=== PATIENT | male | born 1940 | race African-American/Black ===

== ENCOUNTER 2021-02-27 17:47 | Emergency (ER) | payer OTHER, SELFPAY ==
[2021-02-27 18:03] VITALS: BP 132/73; BP 141/93; PULSE 84; PULSE 85; RESP 16; TEMP 36.9; O2SAT 100; BMI 27.6
--- NOTE | 2021-02-27 18:28 | ED_ITS ---
HPI - Male Genitourinary General Chief complaint: Urogenital-Male Stated complaint: ? Time Seen by Provider: 02/27/21 18:15 Source: patient, family and EMS Mode of arrival: ambulatory Limitations: no limitations History of Present Illness HPI Narrative: 80 y/o male with unknown medical history presents to the ER from assisted living facility via EMS with reports of burning urination and blood in his urine that started this morning. When he woke up this morning he noticed his urine was darker than usual. It had a foul smelling odor. There was a couple drops of blood on the floor after he urinated this afternoon. He did not notice any blood clots. He is on any blood thinners. He denies any trauma. No fever or chills. No nausea, vomiting, abdominal pain. No history of UTIs. MD Complaint: dysuria and other (hematuria) Onset (ago): hour(s) Duration: intermittent Location: penis Severity: moderate Quality: burning Relieving factors: none Exacerbating factors: urination Associated symptoms: Reports blood in urine and dysuria Related Data Sexually active: No Previous Rx's Medication Instructions Recorded cefuroxime axetil 250 mg tablet 250 mg PO BID 7 Days #14 tab 02/27/21 Allergies Allergy/AdvReac Type Severity Reaction Status Date / Time Unable to Assess Allergy Unverified 02/27/21 18:16 Review of Systems Review of Systems: Constitutional: No Fever, No Chills ENT/Mouth: No sore throat, No Rhinorrhea, No Swallowing Difficulty Cardiovascular: No Chest Pain, No SOB, No Orthopnea, No Edema Respiratory: No Cough, No Sputum, No Wheezing, No dyspnea Gastrointestinal: No Nausea, No Vomiting, No Diarrhea, No abdominal Pain Genitourinary: + Dysuria, No Urinary Frequency, + Hematuria, +Foul smelling urine Musculoskeletal: No joint pain, No Myalgias Skin: No Skin Lesions, No rash Neuro: No Weakness, No Numbness, No Dizziness, No Headache Heme/Lymph: No Bruising, No Lymphadenopathy Endocrine: No Polyuria, No Polydipsia PMFSH Social History Social History Advance Directives: No Advance Directives Information Provided: No Physical Exam Vital Signs: Vital Signs: Last Vital Signs Temp 98.2 F 02/27/21 22:13 Pulse 78 02/27/21 22:19 Resp 16 02/27/21 22:13 BP 157/83 H 02/27/21 22:19 Pulse Ox 98 02/27/21 22:13 Body Mass Index 27.6 Appearance: Alert. Oriented X3. No acute distress. Eyes: Pupils equal, round and reactive to light. ENT: Pharynx normal. Neck: Normal inspection. Neck supple. CVS: Normal heart rate and rhythm. Pulses normal. Respiratory: No respiratory distress. Breath sounds normal. Abdomen: Soft and nontender. +BS x4 Genitalia: Normal external inspection, penis is uncircumcised. Foreskin is easily retractable. No blood at urethral meatus. Testicles are descended and nontender. No masses palpated. Skin: Skin warm and dry. Normal skin color. Normal skin turgor. No rashes. Extremities: No lower extremity edema. Neuro: Oriented X 3. Nonfocal. Course Course Course Narrative: 80 y/o male with history of polio as a child, unknown other medical history (reports only taking vitamins and is not on meds, came with no paperwork) who presents with dysuria, foul-smelling urine, and hematuria that started this morning. He is afebrile and nontoxic appearing. His urine here is clear yellow. He has no fever. Will send UA and basic lab workup. Doubt sepsis. Reevaluation(s) Reevaluation #1: No leukocytosis. His urine is showing microscopic hematuria. No gross hematuria. Will treat for acute cystitis with IV Rocephin now and start oral antibiotics for 1 week. Will refer to Urology. Patient is stable for discharge home with p.o. antibiotics and outpatient follow-up. Reevaluation #2: Prior to discharge patient noted to be hypertensive to 170 systolic. Repeat was in the 150 systolic he has no headache, chest pain, vision changes. He denies being on any medication for blood pressure. He does not recall last time he saw his primary care doctor. At this time he continues to be stable for discharge back to his assisted living. MDM - Male Genitourinary Lab Data Result diagrams: 02/27/21 18:44 02/27/21 18:44 Labs: Lab Results 02/27/21 02/27/21 02/27/21 Range/Units 18:29 18:44 18:44 WBC 6.3 (4.8-10.8) X10*3/uL RBC 4.47 L (4.60-5.80) X10*6/uL Hgb 12.4 L (14.0-18.0) g/dl Hct 38.6 L (42.0-52.0) % MCV 86.4 (80.0-98.0) fL MCH 27.7 (27.0-33.0) pg MCHC 32.1 (31.0-36.0) g/dl RDW 17.5 H (11.0-16.0) % Plt Count 184 (160-400) X10*3/uL MPV 10.5 (9.4-12.4) fL Immature Gran % (Auto) 0.2 (0.0-0.4) % Neut % (Auto) 43.9 L (45-73) % Lymph % (Auto) 32.3 (20-40) % Hawkins % (Auto) 15.7 H (2-11) % Eos % (Auto) 7.4 H (0-4) % Baso % (Auto) 0.5 (0-2) % Lymph # (Auto) 2.0 (1.2-4.9) X10*3/uL Hawkins # (Auto) 1.0 (0.1-1.2) X10*3/uL Eos # (Auto) 0.5 H (0.0-0.4) X10*3/uL Baso # (Auto) 0.0 (0.0-0.2) X10*3/uL Abs Immat Gran (auto) 0.01 (0.00-0.03) X10*3/uL Absolute Neuts (auto) 2.8 (2.0-8.3) x10*3/uL Absolute Nucleated RBC 0.000 (0.0-0.012) X10*3/uL Nucleated RBC % (auto) 0.0 (0.0-0.2) /100WBC APTT 39.0 H (24.1-38.0) SEC Sodium (135-145) mmol/L Potassium (3.3-5.1) mmol/L Chloride (96-108) mmol/L Carbon Dioxide (22-29) mmol/L Anion Gap (12-20) BUN (9-16) mg/dL Creatinine (0.5-1.4) mg/dL Estim Creat Clear Calc Estimated GFR Random Glucose (60-115) mg/dL Lactic Acid (0.5-2.0) mmol/L Calcium (8.4-10.2) mg/dL Magnesium (1.6-2.6) mg/dL Total Bilirubin (0.0-1.0) mg/dL Direct Bilirubin (0.0-0.5) mg/dL AST (5-37) U/L ALT (0-40) U/L Alkaline Phosphatase (39-117) U/L Total Protein (6.5-8.0) g/dL Albumin (3.5-5.0) g/dL Urine Color YELLOW Urine Appearance CLEAR Urine pH 6.0 (5.0-8.0) Ur Specific [place] >= 1.030 H (1.005-1.025) Urine Protein NEG (NEG-TRACE) MG/DL Urine Glucose (UA) NEG (NEG) MG/DL Urine Ketones NEG (NEG) MG/DL Urine Blood 1+ H (NEG) Urine Nitrite NEG (NEG) Ur Leukocyte Esterase NEG (NEG) Urine RBC 5-9 H (0) /HPF Urine WBC 0 (0-4) /HPF Ur Squamous Epith Cells 1+ /LPF Urine Bacteria 1+ /LPF 02/27/21 02/27/21 Range/Units 18:44 19:42 WBC (4.8-10.8) X10*3/uL RBC (4.60-5.80) X10*6/uL Hgb (14.0-18.0) g/dl Hct (42.0-52.0) % MCV (80.0-98.0) fL MCH (27.0-33.0) pg MCHC (31.0-36.0) g/dl RDW (11.0-16.0) % Plt Count (160-400) X10*3/uL MPV (9.4-12.4) fL Immature Gran % (Auto) (0.0-0.4) % Neut % (Auto) (45-73) % Lymph % (Auto) (20-40) % Hawkins % (Auto) (2-11) % Eos % (Auto) (0-4) % Baso % (Auto) (0-2) % Lymph # (Auto) (1.2-4.9) X10*3/uL Hawkins # (Auto) (0.1-1.2) X10*3/uL Eos # (Auto) (0.0-0.4) X10*3/uL Baso # (Auto) (0.0-0.2) X10*3/uL Abs Immat Gran (auto) (0.00-0.03) X10*3/uL Absolute Neuts (auto) (2.0-8.3) x10*3/uL Absolute Nucleated RBC (0.0-0.012) X10*3/uL Nucleated RBC % (auto) (0.0-0.2) /100WBC APTT (24.1-38.0) SEC Sodium 141 (135-145) mmol/L Potassium 4.3 (3.3-5.1) mmol/L Chloride 109 H (96-108) mmol/L Carbon Dioxide 25 (22-29) mmol/L Anion Gap 11 L (12-20) BUN 15 (9-16) mg/dL Creatinine 0.99 (0.5-1.4) mg/dL Estim Creat Clear Calc 47.8 Estimated GFR > 60 Random Glucose 111 (60-115) mg/dL Lactic Acid 0.8 (0.5-2.0) mmol/L Calcium 10.5 H (8.4-10.2) mg/dL Magnesium 2.1 (1.6-2.6) mg/dL Total Bilirubin 0.3 (0.0-1.0) mg/dL Direct Bilirubin < 0.2 (0.0-0.5) mg/dL AST 19 (5-37) U/L ALT 17 (0-40) U/L Alkaline Phosphatase 87 (39-117) U/L Total Protein 7.1 (6.5-8.0) g/dL Albumin 3.9 (3.5-5.0) g/dL Urine Color Urine Appearance Urine pH (5.0-8.0) Ur Specific [place] (1.005-1.025) Urine Protein (NEG-TRACE) MG/DL Urine Glucose (UA) (NEG) MG/DL Urine Ketones (NEG) MG/DL Urine Blood (NEG) Urine Nitrite (NEG) Ur Leukocyte Esterase (NEG) Urine RBC (0) /HPF Urine WBC (0-4) /HPF Ur Squamous Epith Cells /LPF Urine Bacteria /LPF Critical Care Time Critical Care Time Critical Care Time: No Discharge Plan Discharge Clinical Impression: Cystitis Patient Disposition: Xfer SNF Transfer Details: [facility] Instructions: Urinary Tract Infection in Men (ED), Interstitial Cystitis (ED) Additional Instructions: Your urine today showed traces of blood, which is most common with irritation of the bladder lining and infection. Your given 1 dose of IV antibiotics in the emergency room. Recommend taking the oral antibiotic as prescribed 2 times a day for 1 week. Drink plenty of water. Recommend following up with Urology for further evaluation. If you develop new or worsening symptoms call 911 or come back to the ER for further evaluation. Prescriptions: New cefuroxime axetil 250 mg tablet 250 mg PO BID 7 Days Qty: 14 RF: 0 Referrals: Ramu Kay MD [Physician] - 1 week (hematuria, dysuria) Interventions: ED Discharge Assessment Last Done: 02/27/21 22:09 Discharge Date/Time: 02/27/21 22:22
[2021-02-27 18:35] VITALS: BP 134/62; PULSE 84; RESP 16; TEMP 36.8; O2SAT 100
[2021-02-27 18:35] LABS: Appearance Urine CLEAR; Color Urine YELLOW; Glucose Urine UA NEG (NEG); Leukocyte Esterase Urine NEG (NEG); Nitrite Urine NEG (NEG); Specific Gravity - Urine >= 1.030 (1.005-1.025); UACC Culture Trigger NO; Urine Blood 1+ (NEG); Urine Ketones NEG (NEG); Urine Protein NEG (NEG-TRACE)
[2021-02-27 18:46] LABS: Bacteria Urine 1+ /LPF; Squamous Epithelial Cell Urine 1+ /LPF; WBC Urine 0 /HPF (0-4)
--- NOTE | 2021-02-27 18:47 | PC.NURSE ---
PATIENT WAS FILLING AND PACKING SUPERVISOR INTO HOSPITAL ATTIRE BY THIS PCT .
[2021-02-27 18:48] LABS: MANUAL DIFF FLAG NO
[2021-02-27 18:49] LABS: Basophils Percent Auto 0.5 % (0-2); Eosinophils Absolute Auto 0.5 X10*3/uL (0.0-0.4); Eosinophils Percent Auto 7.4 % (0-4); Hematocrit 38.6 % (42.0-52.0); Hemoglobin 12.4 g/dl (14.0-18.0); Imm Gran Abs Auto 0.01 X10*3/uL (0.00-0.03); Imm Gran Pct Auto 0.2 % (0.0-0.4); Lymphocytes Percent Auto 32.3 % (20-40); Mean Corpuscular HGB Conc 32.1 g/dl (31.0-36.0); Mean Corpuscular Hemoglobin 27.7 pg (27.0-33.0); Mean Corpuscular Volume 86.4 fL (80.0-98.0); Mean Platelet Volume 10.5 fL (9.4-12.4); Monocytes Percent Auto 15.7 % (2-11); Neutrophils Absolute Auto 2.8 x10*3/uL (2.0-8.3); Neutrophils Percent Auto 43.9 % (45-73); Platelet Count 184 X10*3/uL (160-400); Red Blood Count 4.47 X10*6/uL (4.60-5.80); Red Cell Distribution Width 17.5 % (11.0-16.0); White Blood Count 6.3 X10*3/uL (4.8-10.8)
[2021-02-27 19:12] LABS: Alanine Aminotransferase 17 U/L (0-40); Albumin Level 3.9 g/dL (3.5-5.0); Alkaline Phosphatase 87 U/L (39-117); Aspartate Amino Transferase 19 U/L (5-37); Bilirubin Direct < 0.2 mg/dL (0.0-0.5); Bilirubin Total 0.3 mg/dL (0.0-1.0); Blood Urea Nitrogen 15 mg/dL (9-16); Calcium 10.5 mg/dL (8.4-10.2); Creatinine Clr Calc Pharmacy 47.8; Estimated Glomerular Filt Rate > 60; Glucose Random 111 mg/dL (60-115); Magnesium 2.1 mg/dL (1.6-2.6); Total Protein 7.1 g/dL (6.5-8.0)
[2021-02-27 19:23] LABS: Anion Gap 11 (12-20); Carbon Dioxide 25 mmol/L (22-29); Chloride 109 mmol/L (96-108); Potassium 4.3 mmol/L (3.3-5.1); Sodium 141 mmol/L (135-145)
[2021-02-27] MEDS: 0.9 % Sodium Chloride 1,000 ML 999 ML IVCONT (19:46)
[2021-02-27] MEDS: cefTRIAXone sodium 1 GM in 0.9 % Sodium Chloride 50 ML IV (20:03)
[2021-02-27 20:09] LABS: Lactic Acid 0.8 mmol/L (0.5-2.0)
--- NOTE | 2021-02-27 21:06 | PC.NURSE ---
RN spoke with Kaylee ryder [facility] to make her aware of plan and to ensure there would be someone present to receive the patient which she confirmed. RN requested that staff call her upon the patient's discharge
[2021-02-27 22:13] VITALS: BP 172/105; PULSE 76; RESP 16; TEMP 36.8; O2SAT 98
[2021-02-27 22:19] VITALS: BP 157/83; PULSE 78
== END 2021-02-27 22:22 | disposition skilled nursing facility (03) ==
PROVIDERS: Physician Assistant; Emergency Provider Internal Medicine
DX: N30.91 Cystitis, unspecified with hematuria (principal); I10 Essential (primary) hypertension
CPT/HCPCS: 36415; 80048; 80076; 81001; 83605; 83735; 85025; 85730; 87040; 96361; 96374; 99284; J0696

== ENCOUNTER 2021-07-01 22:45 | Observation (INO) | payer OTHER, SELFPAY ==
--- NOTE | 2021-07-01 | ECG_ITS ---
Test Reason : CHEST PAIN Blood Pressure : / mmHG Vent. Rate : 104 BPM Atrial Rate : 104 BPM P-R Int : 168 ms QRS Dur : 124 ms QT Int : 376 ms P-R-T Axes : 057 -81 054 degrees QTc Int : 494 ms Sinus tachycardia Left axis deviation Right bundle branch block Premature ventricular complexes Abnormal ECG No previous ECGs available Referred By: Generic ED Physician Electronically Signed By:TEODORA BRENNER
[2021-07-01 22:53] VITALS: BP 170/80; PULSE 90; O2SAT 96; BMI 25.8
--- NOTE | 2021-07-01 23:10 | ED.CHESTPAIN ---
HPI - Chest Pain General Chief Complaint: Chest Pain Stated Complaint: cp Time Seen by Provider: 07/01/21 23:10 Source: patient Mode of arrival: EMS Limitations: no limitations History of Present Illness HPI narrative: Patient 80 years old with history of hypertension CKD diabetes hypercalcemia cerebral palsy with right-sided weakness comes here for chest pain started in the middle of the chest just prior to arrival felt his heart was beating fast . No syncope no shortness of breath no diaphoresis no radiation of pain no cough no fever or chills EKG done by EMS showed frequent PVCs Related Data Previous Rx's Medication Instructions Recorded cefuroxime axetil 250 mg tablet 250 mg PO BID 7 Days #14 tab 02/27/21 Allergies Allergy/AdvReac Type Severity Reaction Status Date / Time No Known Allergies Allergy Verified 07/02/21 03:41 Review of Systems Review of Systems: Yes all other systems are reviewed and are negative [facility] Past Medical History Medical History (Updated 07/02/21 @ 03:54 by Julio Rutherford MD) CKD stage 3 due to type 2 diabetes mellitus Diabetes mellitus Hypercalcemia Hypertension Osteoarthritis Social History Social History Alcohol intake: former Patient Tobacco Use Status: Former Tobacco user Use of substances other than those prescribed or required for medical reasons: No Advance Directives: No Physical Exam Vital Signs: Vital Signs: Last Vital Signs Pulse 86 07/02/21 05:47 Resp 16 07/02/21 05:47 BP 156/62 H 07/02/21 05:47 Pulse Ox 97 07/02/21 05:47 BMI result Body Mass Index 25.8 Appearance: Alert. Oriented X3. No acute distress. Eyes: PERRLA, No Nystagmus ENT: Pharynx normal. Oral Mucosa moist Neck: Normal inspection. Neck supple. CVS: Normal heart rate and rhythm. Pulses normal. Respiratory: No respiratory distress. Equal air entry bilateral, no wheezing/rales/rhonchi Abdomen: Soft and nontender. Bowel sounds are present, no mass palpable, no CVA tenderness Skin: Skin warm and dry. Normal skin color. Normal skin turgor. Extremities: No lower extremity edema. No calf tenderness Neuro: Oriented X 3. No motor deficit. No sensory deficit.No cerebellar signs , cranial nerves II-XII intact MDM - Chest Pain MDM Narrative Medical decision making narrative: Patient with chest pain new onset EKG showed unifocal PVCs without any acute ischemic changes initial troponin was elevated with no change in delta troponin chest pain is mid of the chest which increases on taking a deep breath. Will admit patient for rule out ACS patient already took aspirin earlier Lab Data Attestation: I reviewed the patient's lab results. Result diagrams: 07/02/21 04:31 07/02/21 04:31 Labs: Lab Results 07/01/21 07/01/21 07/01/21 Range/Units 23:41 23:41 23:41 WBC 8.0 (4.8-10.8) X10*3/uL RBC 4.96 (4.60-5.80) X10*6/uL Hgb 13.5 L (14.0-18.0) g/dl Hct 42.6 (42.0-52.0) % MCV 85.9 (80.0-98.0) fL MCH 27.2 (27.0-33.0) pg MCHC 31.7 (31.0-36.0) g/dl RDW 17.0 H (11.0-16.0) % Plt Count 195 (160-400) X10*3/uL MPV 9.8 (9.4-12.4) fL Immature Gran % (Auto) 0.3 (0.0-0.4) % Neut % (Auto) 81.2 H (45-73) % Lymph % (Auto) 9.3 L (20-40) % [place] % (Auto) 7.0 (2-11) % Eos % (Auto) 2.1 (0-4) % Baso % (Auto) 0.1 (0-2) % Lymph # (Auto) 0.7 L (1.2-4.9) X10*3/uL [place] # (Auto) 0.6 (0.1-1.2) X10*3/uL Eos # (Auto) 0.2 (0.0-0.4) X10*3/uL Baso # (Auto) 0.0 (0.0-0.2) X10*3/uL Abs Immat Gran (auto) 0.02 (0.00-0.03) X10*3/uL Absolute Neuts (auto) 6.5 (2.0-8.3) x10*3/uL Absolute Nucleated RBC 0.000 (0.0-0.012) X10*3/uL Nucleated RBC % (auto) 0.0 (0.0-0.2) /100WBC PT (9.9-13.0) SEC INR (0.9-1.1) APTT (24.1-38.0) SEC Sodium 142 (135-145) mmol/L Potassium 4.6 (3.3-5.1) mmol/L Chloride 109 H (96-108) mmol/L Carbon Dioxide 24 (22-29) mmol/L Anion Gap 14 (12-20) BUN 16 (9-16) mg/dL Creatinine 1.16 (0.5-1.4) mg/dL Estim Creat Clear Calc 49.9 Estimated GFR > 60 Random Glucose 129 H (60-115) mg/dL Calcium 10.7 H (8.4-10.2) mg/dL Total Bilirubin 0.5 (0.0-1.0) mg/dL AST 19 (5-37) U/L ALT 15 (0-40) U/L Alkaline Phosphatase 73 (39-117) U/L Total Creatine Kinase 206 H (38-174) U/L Troponin I High Sens 61.9 H (<3.5-35.0) ng/L Total Protein 7.6 (6.5-8.0) g/dL Albumin 4.0 (3.5-5.0) g/dL 07/01/21 07/02/21 Range/Units 23:41 02:23 WBC (4.8-10.8) X10*3/uL RBC (4.60-5.80) X10*6/uL Hgb (14.0-18.0) g/dl Hct (42.0-52.0) % MCV (80.0-98.0) fL MCH (27.0-33.0) pg MCHC (31.0-36.0) g/dl RDW (11.0-16.0) % Plt Count (160-400) X10*3/uL MPV (9.4-12.4) fL Immature Gran % (Auto) (0.0-0.4) % Neut % (Auto) (45-73) % Lymph % (Auto) (20-40) % [place] % (Auto) (2-11) % Eos % (Auto) (0-4) % Baso % (Auto) (0-2) % Lymph # (Auto) (1.2-4.9) X10*3/uL [place] # (Auto) (0.1-1.2) X10*3/uL Eos # (Auto) (0.0-0.4) X10*3/uL Baso # (Auto) (0.0-0.2) X10*3/uL Abs Immat Gran (auto) (0.00-0.03) X10*3/uL Absolute Neuts (auto) (2.0-8.3) x10*3/uL Absolute Nucleated RBC (0.0-0.012) X10*3/uL Nucleated RBC % (auto) (0.0-0.2) /100WBC PT 14.4 H (9.9-13.0) SEC INR 1.3 H (0.9-1.1) APTT 38.3 H (24.1-38.0) SEC Sodium (135-145) mmol/L Potassium (3.3-5.1) mmol/L Chloride (96-108) mmol/L Carbon Dioxide (22-29) mmol/L Anion Gap (12-20) BUN (9-16) mg/dL Creatinine (0.5-1.4) mg/dL Estim Creat Clear Calc Estimated GFR Random Glucose (60-115) mg/dL Calcium (8.4-10.2) mg/dL Total Bilirubin (0.0-1.0) mg/dL AST (5-37) U/L ALT (0-40) U/L Alkaline Phosphatase (39-117) U/L Total Creatine Kinase (38-174) U/L Troponin I High Sens 73.0 H (<3.5-35.0) ng/L Total Protein (6.5-8.0) g/dL Albumin (3.5-5.0) g/dL ECG Data ECG #1: Attestation: I personally reviewed and interpreted this ECG as follows: Interpretation: Sinus tachycardia with heart rate 104 beats per minute left axis deviation right bundle-branch block unifocal PVCs no acute ST T wave changes no acute ischemia Discharge Plan Discharge Clinical Impression: Chest pain Patient Disposition: Admitted As Inpatient
[2021-07-01 23:47] LABS: Basophils Percent Auto 0.1 % (0-2); Eosinophils Absolute Auto 0.2 X10*3/uL (0.0-0.4); Eosinophils Percent Auto 2.1 % (0-4); Hematocrit 42.6 % (42.0-52.0); Hemoglobin 13.5 g/dl (14.0-18.0); Imm Gran Abs Auto 0.02 X10*3/uL (0.00-0.03); Imm Gran Pct Auto 0.3 % (0.0-0.4); Lymphocytes Absolute Auto 0.7 X10*3/uL (1.2-4.9); Lymphocytes Percent Auto 9.3 % (20-40); MANUAL DIFF FLAG NO; Mean Corpuscular HGB Conc 31.7 g/dl (31.0-36.0); Mean Corpuscular Hemoglobin 27.2 pg (27.0-33.0); Mean Corpuscular Volume 85.9 fL (80.0-98.0); Mean Platelet Volume 9.8 fL (9.4-12.4); Monocytes Absolute Auto 0.6 X10*3/uL (0.1-1.2); Neutrophils Absolute Auto 6.5 x10*3/uL (2.0-8.3); Neutrophils Percent Auto 81.2 % (45-73); Platelet Count 195 X10*3/uL (160-400); Red Blood Count 4.96 X10*6/uL (4.60-5.80)
[2021-07-01 23:52] LABS: INTERNATIONAL NORM RATIO 1.3 (0.9-1.1); Prothrombin Time 14.4 SEC (9.9-13.0)
[2021-07-01] MEDS: Nitroglycerin 2 % Oint 1 GM Packet 0.5 INCH TRANSDERMA (23:52)
[2021-07-01 23:55] LABS: Partial Thromboplastin Time 38.3 SEC (24.1-38.0)
[2021-07-02 00:03] LABS: Alanine Aminotransferase 15 U/L (0-40); Alkaline Phosphatase 73 U/L (39-117); Anion Gap 14 (12-20); Aspartate Amino Transferase 19 U/L (5-37); Bilirubin Total 0.5 mg/dL (0.0-1.0); Blood Urea Nitrogen 16 mg/dL (9-16); Calcium 10.7 mg/dL (8.4-10.2); Carbon Dioxide 24 mmol/L (22-29); Chloride 109 mmol/L (96-108); Creatinine Clr Calc Pharmacy 49.9; Estimated Glomerular Filt Rate > 60; Glucose Random 129 mg/dL (60-115); Potassium 4.6 mmol/L (3.3-5.1); Sodium 142 mmol/L (135-145); Total Protein 7.6 g/dL (6.5-8.0)
[2021-07-02 00:07] LABS: Troponin-I High Sensitivity 61.9 ng/L (<3.5-35.0)
[2021-07-02 03:14] VITALS: PULSE 97; RESP 20
--- NOTE | 2021-07-02 03:17 | PC.NURSE ---
I assumed nursing care of Glenn upon his arrival to bed 17 via EMS. Glenn comes [place] local [place] and presents for evaluation of intermittent chest pain, 11/26 on arrival. He is alert, oriented x 3, makes eye contact with Rn and is calm and cooperative. Respiraitons non-labored, speech clear and appropriate, speaking in full sentences, no cyanosis. SR with R BBB on bedside monitor. Skin warm and dry. No nausea, no vomiting. We will continue to monitor Glenn.
--- NOTE | 2021-07-02 03:49 | P.HPHOSP_ITS ---
History of Present Illness Date of Service: 07/02/21 Chief Complaint: chest pain 80-year-old male with a past medical history of hypertension, hyperlipidemia, diabetes, CKD stage 3, hearing loss, history of hypercalcemia, osteoarthritis, osteoporosis, urinary incontinence, tubular adenoma presented to the hospital with a chief complaint of chest pain. Patient reports that he had chest pain located in the left side of the chest, sharp in nature, nonradiating, no associated lightheadedness dizziness, diaphore sis or nausea vomiting. Patient mentioned that his chest pain improved at the time of my entry. Denies any fever chills cough. Denies any GI symptoms. Review of all other systems is negative except mentioned above ER course: Per ER team patient's troponin elevated to 61.9-73.0. EKG was nonischemic. Chest pain resolved. Admitted to the hospital for further management [facility] Medical History (Updated 07/02/21 @ 03:54 by Julio Rutherford MD) CKD stage 3 due to type 2 diabetes mellitus Diabetes mellitus Hypercalcemia Hypertension Osteoarthritis Pertinent family history: Reviewed Social History Alcohol intake: former Patient Tobacco Use Status: Former Tobacco user Use of substances other than those prescribed or required for medical reasons: No Advance Directives: No Meds Allergies Allergy/AdvReac Type Severity Reaction Status Date / Time No Known Allergies Allergy Verified 07/02/21 03:41 Active Medications: Current Medications Acetaminophen (Acetaminophen 325 Mg Tablet) 650 mg PO Q6H PRN PRN Reason: Pain, Mild (Pain Scale 1-3) Enoxaparin Sodium (Enoxaparin Sodium 40 Mg/0.4 Ml Syringe) 40 mg SUBCUT Q24H HARJIT Melatonin (Melatonin 3 Mg Tablet) 6 mg PO BEDTIME PRN PRN Reason: Insomnia Nitroglycerin (Nitroglycerin 0.4 Mg Tab.Subl) 0.4 mg SUBLINGUAL Q5M PRN PRN Reason: Chest Pain Senna (Sennosides 8.6 Mg Tablet) 17.2 mg PO BEDTIME PRN PRN Reason: Constipation Sodium Chloride (0.9 % Sodium Chloride Flush 3 Ml Syringe) 3 ml IVFLUSH QSHIFT [facility] Medications (per PCP office note) Alcohol Pads, See Instructions, 3 refills, use as directed for Type 2 Diabetes Mellitus, E11.9, 1x/daily. 90 day supply. aspirin 81 mg oral tablet, chewable, 81 mg= 1 tablet, By Mouth, Daily, 11 refi lls Bed Pads, See Instructions, 11 refills, dx: urinary incontinence, cerebral palsy. bedrails. left and right, See Instructions, diagnosis gait instability/falls pt wheelchair/room confined bedside commode, See Instructions, diagnosis gait instability pt wheelchair/room confined cetirizine 10 mg oral tablet, 1 tablet, By Mouth, Daily, 11 refills Detrol LA 2 mg oral capsule, extended release, 2 mg= 1 capsule, By Mouth, Daily, 11 refills docusate sodium 100 mg oral tablet, 100 mg= 1 tablet, By Mouth, 2 times a day, 11 refills, with plenty of water Freestyle Lite Lancets, See Instructions, 11 refills, dx: to check BS once daily fasting Freestyle Lite Monitor, See Instructions, dx: DM II, diet controlled, E11.9, testing once daily. 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 May partially fill tub transfer bench, See Instructions, diagnosis gait instability/falls pt wheelchair/room confined Vitamin D3 1000 intl units oral capsule, 1000 International_Units= 1 capsule, By Mouth, Daily, 11 refills, with food Walker with seat attached, See Instructions, Use when ambulating Physical Exam Vital Signs and Narrative: Vital Signs: Last Vital Signs Pulse 97 07/02/21 03:14 Resp 20 07/02/21 03:14 BMI result Body Mass Index 25.8 Gen: Appears be in no acute distress HEENT: NCAT, Moist mucosa. Pulmonary: Vesicular breath sounds, fair air entry CVS: Normal S1-S2 Abdomen: BS+, Soft, Nontender Extremities: Warm well perfused Neuro: Alert and awake. Results Labs CBC and Chem 7: 07/01/21 23:41 07/01/21 23:41 Labs: Laboratory Results - last 24 hr 07/01/21 07/01/21 07/01/21 23:41 23:41 23:41 MCV 85.9 MCH 27.2 MCHC 31.7 RDW 17.0 H Plt Count 195 MPV 9.8 Immature Gran % (Auto) 0.3 Neut % (Auto) 81.2 H Lymph % (Auto) 9.3 L [place] % (Auto) 7.0 Eos % (Auto) 2.1 Baso % (Auto) 0.1 Lymph # (Auto) 0.7 L [place] # (Auto) 0.6 Eos # (Auto) 0.2 Baso # (Auto) 0.0 Abs Immat Gran (auto) 0.02 Absolute Neuts (auto) 6.5 Absolute Nucleated RBC 0.000 Nucleated RBC % (auto) 0.0 PT 14.4 H INR 1.3 H APTT 38.3 H Anion Gap 14 Estim Creat Clear Calc 49.9 Estimated GFR > 60 Random Glucose 129 H Calcium 10.7 H Total Bilirubin 0.5 AST 19 ALT 15 Alkaline Phosphatase 73 Total Creatine Kinase 206 H Total Protein 7.6 Albumin 4.0 Imaging Radiologist's Impressions: Reason For Exam Swelling Extremities RESULT: US Doppler Ext Lower Venous Bilat US Doppler Ext Lower Venous Bilat INDICATION: Lower extremity swelling. COMPARISON: None IMAGING TECHNIQUE: Ultrasound of the veins from the groin through the calf was performed using grayscale, color, and spectral Doppler ultrasound assessing for complete compressibility and normal flow characteristics. FINDINGS: RIGHT LOWER EXTREMITY: Common femoral vein: Patent. No thrombosis. Femoral vein: Patent. No thrombosis. Popliteal vein: Patent. No thrombosis. Gastrocnemius veins: The visualized portions are patent without evidence of thrombosis. Peroneal veins: The visualized portions are patent without evidence of throm bosis. Posterior tibial veins: The visualized portions are patent without evidence of thrombosis. LEFT LOWER EXTREMITY: Common femoral vein: Patent. No thrombosis. Femoral vein: Patent. No thrombosis. Popliteal vein: Patent. No thrombosis. Gastrocnemius veins: The visualized portions are patent without evidence of thrombosis. Peroneal veins: The visualized portions are patent without evidence of thrombosis. Posterior tibial veins: The visualized portions are patent without evidence of thrombosis. OTHER FINDINGS: There is diffuse calf edema. IMPRESSION: No evidence of deep venous thrombosis. I have personally reviewed the images and I agree with this report. WSN: [id number] Ordering Physician: Keri Baldwin Signature Line Dictated By: David[Radiology] Jonn ALARCON Dictated Date/Time: 06/27/21 11:22 a Reviewed By: Chet Dick MD Signed By: Chet Dick MD Signed Date/Time: 06/27/21 11:27 am Transcribed By: GWENDOLYN Transcribed Date/Time: 06/27/21 11:01 am US Doppler Ext Lower Venous Bilat This document has an image Assessment and Plan (1) Chest pain: Status: Acute Plan 80-year-old male with a past medical history of hypertension, hyperlipidemia, diabetes, CKD stage 3, hearing loss, history of hypercalcemia, osteoarthritis, osteoporosis, urinary incontinence, tubular adenoma presented to the hospital with a chief complaint of chest pain. chest pain: Currently resolved Troponins indeterminate and plateaued. sublingual nitroglycerin p.r.n. Telemetry Cardiology consult Echocardiogram continue home aspirin, statin history of peripheral edema: Patient on Lasix at home. Will continue. Patient had recent venous duplex negative. History of diabetes: Insulin sliding scale. DVT prophylaxis: Lovenox Code status: Full code Quality Stroke Does the patient have a stroke diagnosis?: No VTE Prior VTE?: No VTE Risk Level:: Medical - moderate - high VTE Device Contraindication: Treatment Not Indicated VTE Drug Contraindication: N/A - Med Ordered
[2021-07-02 04:56] LABS: MANUAL DIFF FLAG NO
[2021-07-02 04:58] LABS: Basophils Percent Auto 0.2 % (0-2); Eosinophils Absolute Auto 0.2 X10*3/uL (0.0-0.4); Eosinophils Percent Auto 2.6 % (0-4); Hematocrit 40.1 % (42.0-52.0); Hemoglobin 12.7 g/dl (14.0-18.0); Imm Gran Abs Auto 0.02 X10*3/uL (0.00-0.03); Imm Gran Pct Auto 0.3 % (0.0-0.4); Lymphocytes Absolute Auto 0.9 X10*3/uL (1.2-4.9); Lymphocytes Percent Auto 14.1 % (20-40); Mean Corpuscular HGB Conc 31.7 g/dl (31.0-36.0); Mean Corpuscular Hemoglobin 27.4 pg (27.0-33.0); Mean Corpuscular Volume 86.4 fL (80.0-98.0); Mean Platelet Volume 11.3 fL (9.4-12.4); Monocytes Absolute Auto 0.6 X10*3/uL (0.1-1.2); Monocytes Percent Auto 8.3 % (2-11); Neutrophils Absolute Auto 4.9 x10*3/uL (2.0-8.3); Neutrophils Percent Auto 74.5 % (45-73); Platelet Count 212 X10*3/uL (160-400); Red Blood Count 4.64 X10*6/uL (4.60-5.80); Red Cell Distribution Width 16.9 % (11.0-16.0); White Blood Count 6.6 X10*3/uL (4.8-10.8)
[2021-07-02 05:16] LABS: Anion Gap 13 (12-20); Blood Urea Nitrogen 17 mg/dL (9-16); Calcium 10.3 mg/dL (8.4-10.2); Carbon Dioxide 23 mmol/L (22-29); Chloride 111 mmol/L (96-108); Creatinine Clr Calc Pharmacy 53.6; Estimated Glomerular Filt Rate > 60; Glucose Random 121 mg/dL (60-115); Potassium 4.5 mmol/L (3.3-5.1); Sodium 142 mmol/L (135-145)
[2021-07-02 05:47] VITALS: BP 156/62; PULSE 86; RESP 16; O2SAT 97
--- NOTE | 2021-07-02 06:38 | PC.NURSE ---
Assumed care of pt Pt able to stand and pivot from stretcher to hospital bed Pt states current chest pain is 0. NAD Will continue to monitor
[2021-07-02 06:39] VITALS: BP 122/62; PULSE 96; RESP 18; TEMP 36.8; O2SAT 96
--- NOTE | 2021-07-02 06:39 | PC.NURSE ---
To ED Overflow via stretcher with phototypesetting equipment monitor. nursing report given to ivet DURAN
--- NOTE | 2021-07-02 09:14 | PHA.MEDREC ---
Pharmacy Consult ? Medication Reconciliation Pharmacy has completed the medication reconciliation. I contact the SNF patient was at, [facility], for medication list. List matched patient's claim history. Francie Agarwal, YasmineD
[2021-07-02 09:32] VITALS: BP 110/63; PULSE 90; RESP 20; O2SAT 97
[2021-07-02 09:33] LABS: COVID-19 Test Negative (Negative)
[2021-07-02] MEDS: Aspirin 81 MG TAB.CHEW PO (09:34)
[2021-07-02] MEDS: Enoxaparin Sodium 40 MG/0.4 ML SYRINGE SUBCUT (09:34)
[2021-07-02] MEDS: 0.9 % Sodium Chloride Flush 3 ML SYRINGE IVFLUSH (09:35)
--- NOTE | 2021-07-02 09:38 | PC.NURSE ---
pt alert and oriented, skin appropriate for ethnicity, respirations even and unlabored, ls clear, pt denies chest pain at this time but still reports slight sob, vs stable
--- NOTE | 2021-07-02 10:19 | MHC.CM.PN ---
met with pt who ius from [facility] pt has been vaccinated and will need trans[portaion when dcd back to [facility] dc plan return to [facility]
--- NOTE | 2021-07-02 11:31 | MHC.CM.PN ---
pt will be dcd to [facility]
--- NOTE | 2021-07-02 11:36 | P.DS_ITS ---
DS: Providers Provider Date of Service: 07/02/21 Date of admission: 07/02/21 03:37 Primary care physician: Keri Baldwin Consults: 07/02/21 03:37 Consult to Cardiology Routine Consulting Provider: Bryan Leblanc Reason for consultation: chest pain DS: Diagnosis Discharge Diagnosis (1) Chest pain: Status: Acute DS: Summary Hospital Course Hospital Course: Chief Complaint:? chest pain ? 80-year-old male with a past medical history of hypertension, hyperlipidemia, diabetes, CKD stage 3, hearing loss, history of hypercalcemia, osteoarthritis, osteoporosis, urinary incontinence, tubular adenoma presented to the hospital with a chief complaint of chest pain. Patient reports that he had chest pain located in the left side of the chest, sharp in nature, nonradiating, no associated lightheadedness dizziness, diaphoresis or nausea vomiting.? Patient mentioned that his chest pain improved at the time of my entry.? Denies any fever chills cough.? Denies any GI symptoms.? Review of all other systems is negative except mentioned above ER course: Per ER team patient's troponin elevated to? 61.9-73.0.? EKG was nonischemic.? Chest pain resolved.? Admitted to the hospital for further management Hospital course: Patient presented with chest pressure and elevated highly sensitive troponin I level to 73 with presentation consistent with NSTEMI, ECG is non-diagnositic. He is been medically managed with asprin, high intensity statin, metoprolol and IV heparin. Cardiology (Dr. Leblanc) advises further testing with carediac catherization and therefore will be transfered to [facility] for this. Presently he is hemodynamically stable. Time Spent with Patient Time attestation: Total time spent providing and/or coordinating discharge services: Discharge coordination time: Greater than 30 minutes Quality: Stroke Does the patient have a stroke diagnosis?: No Physical Exam Vital Signs: Vital Signs: Last Vital Signs Temp 98.2 F 07/02/21 06:39 Pulse 90 07/02/21 09:32 Resp 20 07/02/21 09:32 BP 110/63 07/02/21 09:32 Pulse Ox 97 07/02/21 09:32 BMI result Body Mass Index 25.8 Const: Other: General: AO X 3, no acute distress Resp: CTA bilateral CVS: S1,S2,RRR GI: +BS, NT, no distention Skin: No rash Neuro: motor grossly intact Psych: appropriate affect DS: Data Data Completed and Pending Labs on day of discharge: Laboratory Results - last 24 hr 07/01/21 07/01/21 07/01/21 23:41 23:41 23:41 WBC 8.0 RBC 4.96 Hgb 13.5 L Hct 42.6 MCV 85.9 MCH 27.2 MCHC 31.7 RDW 17.0 H Plt Count 195 MPV 9.8 Immature Gran % (Auto) 0.3 Neut % (Auto) 81.2 H Lymph % (Auto) 9.3 L [place] % (Auto) 7.0 Eos % (Auto) 2.1 Baso % (Auto) 0.1 Lymph # (Auto) 0.7 L [place] # (Auto) 0.6 Eos # (Auto) 0.2 Baso # (Auto) 0.0 Abs Immat Gran (auto) 0.02 Absolute Neuts (auto) 6.5 Absolute Nucleated RBC 0.000 Nucleated RBC % (auto) 0.0 PT INR APTT Sodium 142 Potassium 4.6 Chloride 109 H Carbon Dioxide 24 Anion Gap 14 BUN 16 Creatinine 1.16 Estim Creat Clear Calc 49.9 Estimated GFR > 60 Random Glucose 129 H Calcium 10.7 H Total Bilirubin 0.5 AST 19 ALT 15 Alkaline Phosphatase 73 Total Creatine Kinase 206 H Troponin I High Sens 61.9 H Total Protein 7.6 Albumin 4.0 COVID-19 ([facility]) COVID-19 Clin Com 07/01/21 07/02/21 07/02/21 23:41 02:23 04:31 WBC 6.6 RBC 4.64 Hgb 12.7 L Hct 40.1 L MCV 86.4 MCH 27.4 MCHC 31.7 RDW 16.9 H Plt Count 212 MPV 11.3 Immature Gran % (Auto) 0.3 Neut % (Auto) 74.5 H Lymph % (Auto) 14.1 L [place] % (Auto) 8.3 Eos % (Auto) 2.6 Baso % (Auto) 0.2 Lymph # (Auto) 0.9 L [place] # (Auto) 0.6 Eos # (Auto) 0.2 Baso # (Auto) 0.0 Abs Immat Gran (auto) 0.02 Absolute Neuts (auto) 4.9 Absolute Nucleated RBC 0.000 Nucleated RBC % (auto) 0.0 PT 14.4 H INR 1.3 H APTT 38.3 H Sodium Potassium Chloride Carbon Dioxide Anion Gap BUN Creatinine Estim Creat Clear Calc Estimated GFR Random Glucose Calcium Total Bilirubin AST ALT Alkaline Phosphatase Total Creatine Kinase Troponin I High Sens 73.0 H Total Protein Albumin COVID-19 ([facility]) COVID-19 Clin Com 07/02/21 07/02/21 04:31 09:09 WBC RBC Hgb Hct MCV MCH MCHC RDW Plt Count MPV Immature Gran % (Auto) Neut % (Auto) Lymph % (Auto) [place] % (Auto) Eos % (Auto) Baso % (Auto) Lymph # (Auto) [place] # (Auto) Eos # (Auto) Baso # (Auto) Abs Immat Gran (auto) Absolute Neuts (auto) Absolute Nucleated RBC Nucleated RBC % (auto) PT INR APTT Sodium 142 Potassium 4.5 Chloride 111 H Carbon Dioxide 23 Anion Gap 13 BUN 17 H Creatinine 1.08 Estim Creat Clear Calc 53.6 Estimated GFR > 60 Random Glucose 121 H Calcium 10.3 H Total Bilirubin AST ALT Alkaline Phosphatase Total Creatine Kinase Troponin I High Sens Total Protein Albumin COVID-19 ([facility]) Negative COVID-19 Clin Com See Note Discharge Plan Discharge Anticipated Discharge Date/Time: 07/02/21 11:21 Patient Disposition: Xfer Acute Care Hospital Referrals: [facility] [Outside] - 1 Week Keri Baldwin [Primary Care Provider] - 1 Week Discharge Medications: New aspirin 81 mg Tablet,Chewable 81 mg PO DAILY Qty: 30 0RF nitroglycerin [Nitrostat] 0.4 mg Tablet, Sublingual 0.4 mg sublingual Q5MX3 PRN (Reason: Chest Pain) Qty: 30 0RF metoprolol tartrate 25 mg tablet 12.5 mg PO BID Qty: 30 0RF Continued tolterodine 2 mg capsule,extended release 24hr 1 cap PO DAILY 0RF cetirizine 10 mg tablet 1 tab PO DAILY 0RF tramadol 50 mg tablet 1 tab PO Q12H PRN (Reason: Pain) 0RF simvastatin 40 mg tablet 1 tab PO BEDTIME 0RF docusate sodium 100 mg capsule 1 cap PO BID 0RF aspirin 81 mg tablet,chewable 1 tab PO DAILY 0RF cholecalciferol (vitamin D3) [Vitamin D3] 25 mcg (1,000 unit) capsule 1 cap PO DAILY 0RF Discharge Orders: Discharge Order (Routine); Ordered 07/02/21 Ordered By: Gelacio Durbin Diet: advance to usual diet Activity on Discharge: As tolerated Stand Alone Forms: Patient Portal Discharge page Care Plan Goals: Transfer to [facility] for cardiac cath Health Concerns: NSTEMI Plan of Treatment: Take aspirin, metoprolol, Lipitor Assessment: As above Discharge Date/Time: 07/02/21 16:10
--- NOTE | 2021-07-02 11:43 | P.CONCA_ITS ---
History of Present Illness History of Present Illness Date of Service: 07/02/21 Chief complaint: Chest pain Narrative: This is a cardiology consultation regarding chest pain and elevated troponins. Patient has multiple medical comorbidities including hypertension, dyslipidemia, diabetes, CKD stage 3, hearing issues. Current admission is for complaints of chest pain. He is not able to really describe much but states he had a discomfort in the substernal area in the left chest over the last couple of days. Seems to have been somewhat intermittent but again difficult to really clarify from patient. Today he states that he feels okay. After arrival, troponins have been found to be elevated and hence he has been admitted. No known CAD otherwise in the past. Review of Systems Review of Systems: Yes all other systems are reviewed and are negative Cardiovascular: Cardiovascular: Reports as per HPI, Reports no additional cardiovascular complaints, Denies acrocyanosis, Denies cool extremities, Reports chest pain, Denies diaphoresis, Denies syncope, Denies claudication, Denies leg edema, Denies lightheadedness, Denies palpitations and Denies dyspnea Respiratory: Respiratory: Denies dyspnea Neurologic: Denies syncope Endocrine: Endocrine: Denies palpitations [facility] Past Medical History Medical History (Updated 07/02/21 @ 11:45 by Bryan Leblanc MD) CKD stage 3 due to type 2 diabetes mellitus Diabetes mellitus Hypercalcemia Hypertension Osteoarthritis Social History Social History Alcohol intake: former Patient Tobacco Use Status: Former Tobacco user Use of substances other than those prescribed or required for medical reasons: No Advance Directives: No service: No Meds Allergies Allergy/AdvReac Type Severity Reaction Status Date / Time No Known Allergies Allergy Verified 07/02/21 03:41 Active Medications: Current Medications Acetaminophen (Acetaminophen 325 Mg Tablet) 650 mg PO Q6H PRN PRN Reason: Pain, Mild (Pain Scale 1-3) Aspirin (Aspirin 81 Mg Tab.Chew) 81 mg PO DAILY [facility] Last Admin: 07/02/21 09:34 Dose: 81 mg Documented by: Atorvastatin Calcium (Atorvastatin Calcium 10 Mg Tablet) 10 mg PO BEDTIME [facility] Heparin Sodium (Porcine) (Heparin Sodium,Porcine 5,000 Unit/Ml Vial) 3,200 unit 40 unit/kg (3200 unit) IVPUSH PROTOCOL BOLUS PRN; Protocol PRN Reason: 40 unit/kg - Heparin Protocol Heparin Sodium (Porcine) (Heparin Sodium,Porcine 5,000 Unit/Ml Vial) 6,400 unit 80 unit/kg (6400 unit) IVPUSH PROTOCOL BOLUS PRN; Protocol PRN Reason: 80 unit/kg - Heparin Protocol Heparin Sodium/Sodium Chloride () 25,000 unit in 250 mls @ 0 mls/hr IVCONT .Q0M HARJIT; Protocol Melatonin (Melatonin 3 Mg Tablet) 6 mg PO BEDTIME PRN PRN Reason: Insomnia Metoprolol Tartrate (Metoprolol Tartrate 12.5 Mg Halftab) 12.5 mg PO BID [facility]; Protocol Nitroglycerin (Nitroglycerin 0.4 Mg Tab.Subl) 0.4 mg SUBLINGUAL Q5MX3 PRN PRN Reason: Chest Pain Senna (Sennosides 8.6 Mg Tablet) 17.2 mg PO BEDTIME PRN PRN Reason: Constipation Sodium Chloride (0.9 % Sodium Chloride Flush 3 Ml Syringe) [facility] Last Admin: 07/02/21 09:35 Dose: 3 ml Documented by: Home Medications Medication Instructions Recorded Confirmed Last Taken Type aspirin 81 mg chewable tablet 1 tab PO DAILY 07/02/21 07/02/21 Unknown History cetirizine 10 mg tablet 1 tab PO DAILY 07/02/21 07/02/21 Unknown History cholecalciferol (vitamin D3) 25 1 cap PO DAILY 07/02/21 07/02/21 Unknown History mcg (1,000 unit) capsule (Vitamin D3) docusate sodium 100 mg capsule 1 cap PO BID 07/02/21 07/02/21 Unknown History simvastatin 40 mg tablet 1 tab PO BEDTIME 07/02/21 07/02/21 Unknown History tolterodine 2 mg capsule,extended 1 cap PO DAILY 07/02/21 07/02/21 Unknown History release 24 hr tramadol 50 mg tablet 1 tab PO Q12H PRN 07/02/21 07/02/21 Unknown History Physical Exam Vital Signs: Vital Signs: Last Vital Signs Temp 98.2 F 07/02/21 06:39 Pulse 90 07/02/21 09:32 Resp 20 07/02/21 09:32 BP 110/63 07/02/21 09:32 Pulse Ox 97 07/02/21 09:32 BMI result Body Mass Index 25.8 Const: General: comfortable HENMT: Other: Unremarkable Neck: Neck: Yes normal visual inspection Chest: Chest palpation & inspection: normal inspection of the chest Resp: Auscultation: clear to auscultation bilaterally Cardio: Palpation: normal PMI Heart sounds: S1 normal heart sound present, S2 normal heart sound present, no gallops, no murmurs and no rubs GI: Palpation (GI): Soft to palpation Back/Spine/Pelvis: Other: unremarkable Skin: Lesions: other Neuro: General: other Extrem: General: Yes other Psych: Mental Status: other Objective Labs and Meds Result diagrams: 07/02/21 04:31 07/02/21 04:31 Lab results: Laboratory Results - last 24 hr 07/01/21 07/01/21 07/01/21 23:41 23:41 23:41 WBC 8.0 RBC 4.96 Hgb 13.5 L Hct 42.6 MCV 85.9 MCH 27.2 MCHC 31.7 RDW 17.0 H Plt Count 195 MPV 9.8 Immature Gran % (Auto) 0.3 Neut % (Auto) 81.2 H Lymph % (Auto) 9.3 L [place] % (Auto) 7.0 Eos % (Auto) 2.1 Baso % (Auto) 0.1 Lymph # (Auto) 0.7 L [place] # (Auto) 0.6 Eos # (Auto) 0.2 Baso # (Auto) 0.0 Abs Immat Gran (auto) 0.02 Absolute Neuts (auto) 6.5 Absolute Nucleated RBC 0.000 Nucleated RBC % (auto) 0.0 PT INR APTT Sodium 142 Potassium 4.6 Chloride 109 H Carbon Dioxide 24 Anion Gap 14 BUN 16 Creatinine 1.16 Estim Creat Clear Calc 49.9 Estimated GFR > 60 Random Glucose 129 H Calcium 10.7 H Total Bilirubin 0.5 AST 19 ALT 15 Alkaline Phosphatase 73 Total Creatine Kinase 206 H Troponin I High Sens 61.9 H Total Protein 7.6 Albumin 4.0 COVID-19 ([facility]) COVID-19 Clin Com 07/01/21 07/02/21 07/02/21 23:41 02:23 04:31 WBC 6.6 RBC 4.64 Hgb 12.7 L Hct 40.1 L MCV 86.4 MCH 27.4 MCHC 31.7 RDW 16.9 H Plt Count 212 MPV 11.3 Immature Gran % (Auto) 0.3 Neut % (Auto) 74.5 H Lymph % (Auto) 14.1 L [place] % (Auto) 8.3 Eos % (Auto) 2.6 Baso % (Auto) 0.2 Lymph # (Auto) 0.9 L [place] # (Auto) 0.6 Eos # (Auto) 0.2 Baso # (Auto) 0.0 Abs Immat Gran (auto) 0.02 Absolute Neuts (auto) 4.9 Absolute Nucleated RBC 0.000 Nucleated RBC % (auto) 0.0 PT 14.4 H INR 1.3 H APTT 38.3 H Sodium Potassium Chloride Carbon Dioxide Anion Gap BUN Creatinine Estim Creat Clear Calc Estimated GFR Random Glucose Calcium Total Bilirubin AST ALT Alkaline Phosphatase Total Creatine Kinase Troponin I High Sens 73.0 H Total Protein Albumin COVID-19 ([facility]) COVID-19 [employer] Com 07/02/21 07/02/21 04:31 09:09 WBC RBC Hgb Hct MCV MCH MCHC RDW Plt Count MPV Immature Gran % (Auto) Neut % (Auto) Lymph % (Auto) [place] % (Auto) Eos % (Auto) Baso % (Auto) Lymph # (Auto) [place] # (Auto) Eos # (Auto) Baso # (Auto) Abs Immat Gran (auto) Absolute Neuts (auto) Absolute Nucleated RBC Nucleated RBC % (auto) PT INR APTT Sodium 142 Potassium 4.5 Chloride 111 H Carbon Dioxide 23 Anion Gap 13 BUN 17 H Creatinine 1.08 Estim Creat Clear Calc 53.6 Estimated GFR > 60 Random Glucose 121 H Calcium 10.3 H Total Bilirubin AST ALT Alkaline Phosphatase Total Creatine Kinase Troponin I High Sens Total Protein Albumin COVID-19 ([facility]) Negative COVID-19 Clin Com See Note ECG Interpretation: EKG with sinus tachycardia, 104/Min; right bundle-branch block pattern, PVCs. Assessment and Plan (1) NSTEMI (non-ST elevated myocardial infarction): Status: Acute (2) PVC (premature ventricular contraction): Status: Acute Plan Echocardiogram with low-normal LVEF; basal inferior akinesis. No prior studies for comparison. High sensitivity troponins are elevated at 62 and 73. Currently, chest pain-free. We will treat him as NSTEMI with IV heparin drip. Aspirin and high-dose statins. Beta-blockers. Will transfer to [facility] for diagnostic cardiac catheterization. Patient is agreeable. Procedures Date of Service Date of Service: 07/02/21
[2021-07-02] MEDS: Metoprolol Tartrate 12.5 MG HALFTAB PO (12:13)
--- NOTE | 2021-07-02 12:15 | CA_ITS ---
Transthoracic Echocardiogram Patient (Last, First, Middle): Glenn Luna, Gender: Male Date of : 1940 Age: 80 Procedure Date: 07/02/2021 Procedure Type: Transthoracic Echocardiogram Location: ER Height: 175.26 cm Weight: 79.38 kg BSA: 1.95 m2 Heart Rate: bpm BP: 116 / 56 mmHg City Controller: YR/TO Referring MD: Julio Rutherford MD Symptoms: high troponins; chest pain Study Quality: Fair ECG Rhythm: Sinus with PVCs Conclusions: - The left ventricular systolic function is low normal. The calculated ejection fraction is 54% by biplane method. - The basal inferior segment is akinetic. - There is mildly decreased right ventricular systolic function. - No obvious valvular pathology seen on this study. Findings Left Ventricle Normal left ventricular cavity size. There is mildly increased left ventricular wall thickness. The left ventricular systolic function is low normal. The calculated ejection fraction is 54% by biplane method. There is evidence of regional wall motion abnormalities. Diastolic function is normal for age. Wall Motion Rest Echo Findings The basal inferior segment is akinetic. Right Ventricle Normal right ventricular cavity size. There is mildly decreased right ventricular systolic function. Atria Both atria are normal in size. Aortic Valve There is a normal trileaflet aortic valve. There is no aortic valve stenosis. There is no aortic valve regurgitation. Mitral Valve The mitral valve appears normal. There is no mitral valve regurgitation. There is no mitral valve stenosis. Pulmonic Valve The pulmonic valve was not well visualized. Tricuspid Valve Normal tricuspid valve structure. There is no tricuspid valve regurgitation. Tricuspid regurgitation envelope is inadequate for calculation of right ventricular systolic pressure. Great Vessels The asc aorta and aortic arch are normal in size. Venous The inferior vena cava is normal in size and collapses greater than 50% with inspiration. There is evidence of a dilated coronary sinus. Pericardium/Pleural There is no evidence of pericardial effusion. Prior Study Comparison No prior study available for comparison. Recommendations, Care & Conclusions No obvious valvular pathology seen on this study. Measurements 2D Linear Measurements IVSd: 1.21 0.6-0.9/0.6-1.0 cm LVIDd: 4.70 3.9-5.3/4.2-5.9 cm LVIDd Index: 2.41 2.4-3.2/2.2-3.1 cm/m2 LVIDs: 3.92 2.0-3.6 cm LVPWd: 1.22 0.7-1.1 cm LA Diam: 3.30 2.7-3.8/3.0-4.0 cm LAIDs Index: 1.69 1.5-2.3 cm/m2 LV Mass: 268.99 67-162/88-224 g LV Mass Index: 137.94 43-95/49-115 g/m2 LVOT Diam: 2.00 3.0+(-)1.3 cm 2D Systolic Function EF 4C: 53.40 >55% EF 2C: 55.80 >55% EF BiP: 54.30 >55% Mitral Valve MV Pk E: 0.89 MV PK A: 0.67 MV Decel Time: 172.00 E/A: 1.30 E'Lateral: 6.53 E'Medial: 5.11 E/E' Med: 17.50 E/E' Lat: 13.70 PHT: 50.00 MVA PHT: 4.40 Decel Moca: 5.20 Aortic Valve AoV Pk Bladimir: 1.08 AoV Mn Bladimir: 0.76 AoV VTI: 0.18 AoV Pk Grad: 5.00 Aov Mn Grad: 3.00 RIK Cont.VTI: 2.42 LVOT LVOT Pk Bladimir: 0.79 LVOT Mn Bladimir: 0.51 LVOT VTI: 0.14 LVOT Pk Grad: 3.00 LVOT Mn Grad: 1.00 LVOT Diam: 2.00 LVOT Area: 3.14 Diastolic Function MV Pk E: 0.89 MV Pk A: 0.67 E/A: 1.30 E'Medial: 5.11 E/E' Med: 17.50 E' Laterial: 6.53 E/E' Lat: 13.70 Right Ventricle TAPSE (mm): 15.00 TVS' Bladimir: 9.14 Tricuspid Valve RA Press: 3.00 Great Vessels Aorta Sinus of Valsalva: 3.51 2.0-3.[address] [place]: 3.11 1.7-3.4 cm Ao Arch: 2.80 Updated in Other Vendor System with Status of Final Bryan Leblanc MD electronically signed on 07/02/2021 11:54:57 AM with status of Final
[2021-07-02 12:20] VITALS: BP 112/72; PULSE 91; RESP 18
[2021-07-02 12:27] LABS: PTT Heparin Drip 43.7 SEC (53-77.9)
[2021-07-02 12:35] VITALS: BP 119/60; PULSE 88; RESP 20; O2SAT 97
[2021-07-02] MEDS: Heparin Sodium,Porcine/1/2NS 25,000 UNIT/250 ML IV.SOLN 9.25 UNIT IVCONT (12:37)
--- NOTE | 2021-07-02 12:37 | PC.NURSE ---
new plan for the pt to be transferred to [facility]
--- NOTE | 2021-07-02 14:06 | PC.NURSE ---
report given to chris granger at [facility]
== END 2021-07-02 16:10 | disposition short-term general hospital (02) ==
LOC: HO.ED 07-02 03:33 → HO.EDOVER 07-02 03:50
PROVIDERS: Admitting Provider Hospitalist; Emergency Provider Internal Medicine; PCP Internal Medicine; Visit Provider Internal Medicine
DX: I21.4 Non-ST elevation (NSTEMI) myocardial infarction (principal); I49.3 Ventricular premature depolarization; R77.8 Other specified abnormalities of plasma proteins; R07.9 Chest pain, unspecified; I45.10 Unspecified right bundle-branch block; G80.8 Other cerebral palsy; I12.9 Hypertensive chronic kidney disease with stage 1 through stage 4 chronic kidney disease, or unspecified chronic kidney disease; E11.9 Type 2 diabetes mellitus without complications; N18.30 Chronic kidney disease, stage 3 unspecified; E78.5 Hyperlipidemia, unspecified; E83.52 Hypercalcemia; M19.90 Unspecified osteoarthritis, unspecified site; M81.0 Age-related osteoporosis without current pathological fracture; R00.0 Tachycardia, unspecified; Z87.891 Personal history of nicotine dependence; Z20.822 Contact with and (suspected) exposure to COVID-19; Z79.82 Long term (current) use of aspirin; Z79.899 Other long term (current) drug therapy
CPT/HCPCS: 36415; 80048; 80053; 82550; 84484; 85025; 85610; 85730; 87635; 93005; 93306; 99219; 99285; J1650

== ENCOUNTER 2021-07-07 07:22 | Outpatient (REF) | payer OTHER, SELFPAY ==
[2021-07-07 07:25] LABS: MANUAL DIFF FLAG NO
[2021-07-07 08:03] LABS: Basophils Percent Auto 0.3 % (0-2); Eosinophils Absolute Auto 0.5 X10*3/uL (0.0-0.4); Eosinophils Percent Auto 7.4 % (0-4); Hematocrit 37.3 % (42.0-52.0); Imm Gran Abs Auto 0.01 X10*3/uL (0.00-0.03); Imm Gran Pct Auto 0.1 % (0.0-0.4); Lymphocytes Absolute Auto 3.2 X10*3/uL (1.2-4.9); Lymphocytes Percent Auto 45.7 % (20-40); Mean Corpuscular HGB Conc 32.2 g/dl (31.0-36.0); Mean Corpuscular Hemoglobin 27.4 pg (27.0-33.0); Mean Corpuscular Volume 85.2 fL (80.0-98.0); Mean Platelet Volume 11.5 fL (9.4-12.4); Monocytes Absolute Auto 0.7 X10*3/uL (0.1-1.2); Monocytes Percent Auto 9.3 % (2-11); Neutrophils Absolute Auto 2.6 x10*3/uL (2.0-8.3); Neutrophils Percent Auto 37.2 % (45-73); Platelet Count 205 X10*3/uL (160-400); Red Blood Count 4.38 X10*6/uL (4.60-5.80); Red Cell Distribution Width 16.6 % (11.0-16.0)
[2021-07-07 08:22] LABS: Alanine Aminotransferase 19 U/L (0-40); Albumin Level 3.3 g/dL (3.5-5.0); Alkaline Phosphatase 65 U/L (39-117); Anion Gap 12 (12-20); Aspartate Amino Transferase 21 U/L (5-37); Bilirubin Total 0.5 mg/dL (0.0-1.0); Blood Urea Nitrogen 17 mg/dL (9-16); Calcium 9.5 mg/dL (8.4-10.2); Carbon Dioxide 23 mmol/L (22-29); Chloride 107 mmol/L (96-108); Estimated Glomerular Filt Rate > 60; Glucose Random 83 mg/dL (60-115); Potassium 4.3 mmol/L (3.3-5.1); Sodium 138 mmol/L (135-145); Total Protein 6.5 g/dL (6.5-8.0)
== END 2021-07-07 07:23 | disposition home or self-care (01) ==
LOC: HO.MMNH1L 07:22
PROVIDERS: Visit Provider Family Medicine
DX: I10 Essential (primary) hypertension (principal); I51.81 Takotsubo syndrome
CPT/HCPCS: 36415; 80053; 85025

== ENCOUNTER 2021-07-14 00:52 | Outpatient (REF) | payer OTHER, SELFPAY ==
[2021-07-14 06:58] LABS: Hematocrit 40.1 % (42.0-52.0); Hemoglobin 12.8 g/dl (14.0-18.0); Mean Corpuscular HGB Conc 31.9 g/dl (31.0-36.0); Mean Corpuscular Volume 84.6 fL (80.0-98.0); Mean Platelet Volume 10.8 fL (9.4-12.4); Platelet Count 228 X10*3/uL (160-400); Red Blood Count 4.74 X10*6/uL (4.60-5.80); Red Cell Distribution Width 16.6 % (11.0-16.0); White Blood Count 7.2 X10*3/uL (4.8-10.8)
[2021-07-14 07:14] LABS: Anion Gap 12 (12-20); Blood Urea Nitrogen 21 mg/dL (9-16); Carbon Dioxide 25 mmol/L (22-29); Chloride 106 mmol/L (96-108); Estimated Glomerular Filt Rate > 60; Glucose Random 103 mg/dL (60-115); Potassium 4.7 mmol/L (3.3-5.1); Sodium 138 mmol/L (135-145)
== END 2021-07-14 00:53 | disposition home or self-care (01) ==
LOC: HO.MMNH1L 00:52
PROVIDERS: Visit Provider Family Medicine
DX: I10 Essential (primary) hypertension (principal)
CPT/HCPCS: 36415; 80048; 85027

== ENCOUNTER 2021-07-21 | Outpatient (REF) | payer OTHER, SELFPAY ==
[2021-07-21 07:01] LABS: Hematocrit 40.3 % (42.0-52.0); Hemoglobin 12.9 g/dl (14.0-18.0); Mean Corpuscular Hemoglobin 27.7 pg (27.0-33.0); Mean Corpuscular Volume 86.7 fL (80.0-98.0); Mean Platelet Volume 11.1 fL (9.4-12.4); Platelet Count 205 X10*3/uL (160-400); Red Blood Count 4.65 X10*6/uL (4.60-5.80); Red Cell Distribution Width 18.5 % (11.0-16.0); White Blood Count 7.4 X10*3/uL (4.8-10.8)
[2021-07-21 07:28] LABS: Anion Gap 11 (12-20); Blood Urea Nitrogen 21 mg/dL (9-16); Calcium 10.4 mg/dL (8.4-10.2); Carbon Dioxide 25 mmol/L (22-29); Chloride 108 mmol/L (96-108); Estimated Glomerular Filt Rate 56; Glucose Random 100 mg/dL (60-115); Potassium 4.8 mmol/L (3.3-5.1); Sodium 139 mmol/L (135-145)
== END 2021-07-21 00:01 | disposition home or self-care (01) ==
LOC: HO.MMNH1L
PROVIDERS: Visit Provider Family Medicine
DX: I10 Essential (primary) hypertension (principal); I51.81 Takotsubo syndrome
CPT/HCPCS: 36415; 80048; 85027

== ENCOUNTER 2021-11-27 17:18 | Inpatient (IN) | payer OTHER, SELFPAY ==
--- NOTE | ~2021-11-27 | XR_ITS ---
EXAMINATION: XR CHEST CLINICAL INFORMATION: Cough and shortness of breath COMPARISON: None TECHNIQUE: 2 views of the chest were obtained. FINDINGS: Mild linear subsegmental atelectasis at the lung bases. No airspace consolidation no pleural effusion or pneumothorax. Normal heart size. Prominent central pulmonary vascularity. No overt pulmonary edema. Small amount of perifissural fluid noted. No acute osseous injury. Moderate S-shaped scoliotic curvature of the imaged spine. XR/XR chest 2V IMPRESSION: 1. Mild bibasilar subsegmental atelectasis. No airspace consolidation. 2. Mild pulmonary vascular congestion and trace fissural fluid. No overt pulmonary edema.
[2021-11-27 17:23] VITALS: BP 151/91; BP 156/70; PULSE 52; PULSE 56; RESP 18; TEMP 36.6; O2SAT 100; O2SAT 99; BMI 29.0
--- NOTE | 2021-11-27 17:40 | ECG_ITS ---
Test Reason : DYSPNEA Blood Pressure : / mmHG Vent. Rate : 081 BPM Atrial Rate : 122 BPM P-R Int : 158 ms QRS Dur : 132 ms QT Int : 434 ms P-R-T Axes : 055 -67 038 degrees QTc Int : 504 ms Normal sinus rhythm Premature ventricular complexes Left axis deviation Right bundle branch block Minimal voltage criteria for LVH, may be normal variant ( R in aVL ) Abnormal ECG When compared with ECG of 01-JUL-2021 23:15, No significant changes seen Referred By: Armida Robertson Electronically Signed By:TEODORA BRENNER
--- NOTE | 2021-11-27 17:45 | ED_ITS ---
HPI - SOB/Dyspnea General Chief Complaint: Dyspnea Stated Complaint: COUGH [id number] Time Seen by Provider: 11/27/21 17:32 Source: patient Mode of arrival: ambulatory Limitations: no limitations History of Present Illness HPI Narrative: 81-year-old male with a history of hypertension, cholesterol, diabetes, chronic kidney disease, osteoarthritis presents today with 3 days of productive cough (white sputum), wheezing, labored breathing with moving around. No chest pain, leg swelling or leg pain, fevers, chills or body aches. Related Data Home Medications Medication Instructions Recorded Confirmed aspirin 81 mg chewable tablet 1 tab PO DAILY 07/02/21 07/02/21 cetirizine 10 mg tablet 1 tab PO DAILY 07/02/21 07/02/21 cholecalciferol (vitamin D3) 25 1 cap PO DAILY 07/02/21 07/02/21 mcg (1,000 unit) capsule (Vitamin D3) docusate sodium 100 mg capsule 1 cap PO BID 07/02/21 07/02/21 simvastatin 40 mg tablet 1 tab PO BEDTIME 07/02/21 07/02/21 tolterodine 2 mg capsule,extended 1 cap PO DAILY 07/02/21 07/02/21 release 24 hr tramadol 50 mg tablet 1 tab PO Q12H PRN Pain 07/02/21 07/02/21 Previous Rx's Medication Instructions Recorded aspirin 81 mg chewable tablet 81 mg PO DAILY #30 tabs 07/02/21 metoprolol tartrate 25 mg tablet 12.5 mg PO BID #30 tabs 07/02/21 nitroglycerin 0.4 mg sublingual 0.4 mg sublingual [id number] PRN Chest 07/02/21 tablet (Nitrostat) Pain #30 tabs Allergies Allergy/AdvReac Type Severity Reaction Status Date / Time No Known Allergies Allergy Verified 07/02/21 03:41 Review of Systems Review of Systems: Yes all other systems are reviewed and are negative Constitutional: Constitutional: Reports no additional constitutional complaints, Denies body ache(s), Denies chills, Denies fever(s), Denies headache(s) and Denies weakness Eyes: Eyes: Reports no additional eye complaints and Denies change in vision ENT: Reports system reviewed and no additional complaints, except as documented, Denies dizziness, Denies headache(s), Denies nasal congestion, Denies nasal discharge and Denies neck pain Cardiovascular: Cardiovascular: Reports no additional cardiovascular complaints, Denies chest pain, Denies leg edema, Denies dyspnea and Reports dyspnea on exertion Respiratory: Respiratory: Reports no additional respiratory complaints, Reports cough, Denies dyspnea, Reports dyspnea on exertion and Reports wheezing Gastrointestinal: Gastrointestinal: Reports no additional gastrointestinal complaints, Denies abdominal pain, Denies diarrhea, Denies nausea and Denies vomiting Genitourinary: Genitourinary: Denies urinary incontinence Musculoskeletal: Musculoskeletal: Reports no additional musculoskeletal complaints, Denies back pain, Denies arthralgias, Denies joint swelling, Denies neck pain, Denies numbness and Denies tingling Integumentary/Breasts: Skin/Breast: Reports system reviewed and no additional complaints, except as docu and Denies rash Neurologic: Reports system reviewed and no additional complaints, except as documented, Denies Abnormal speech present, Denies dizziness, Denies headache(s), Denies numbness, Denies tingling and Denies weakness Allergic/Immunologic: Allergic/Immunologic: Reports wheezing PMFSH Past Medical History Attestation statement: The following information was validated with the patient. Source: old records reviewed and nursing notes reviewed Medical History CKD stage 3 due to type 2 diabetes mellitus Diabetes mellitus Hypercalcemia Hypertension NSTEMI (non-ST elevated myocardial infarction) Osteoarthritis Social History Social History Alcohol intake: former Patient Tobacco Use Status: Former Tobacco user Advance Directives: No Advance Directives Information Provided: No service: No Physical Exam Vital Signs: Vital Signs: Last Vital Signs Temp 97.9 F 11/27/21 19:08 Pulse 74 11/27/21 19:08 Resp 20 11/27/21 19:08 BP 135/70 11/27/21 19:08 Pulse Ox 97 11/27/21 22:08 O2 Del Method 11/27/21 22:08 BMI result Body Mass Index 29.0 Const: General: cooperative, healthy appearing, comfortable and no acute d istress Orientation/consciousness: patient oriented x3 Limitations: no limitations HEENT: Head: Yes normal to inspection Ears: hearing grossly normal bilaterally General nose exam: Normal external nose present Face and sinu s: Yes normal facial exam Mouth: Normal oral and palatal mucosa present Throat: Yes posterior oropharynx normal Eyes: General: appearance normal, both eyes and all related structures Pupils: Equal, round and reactive pupils present Neck: Neck: Yes normal visual inspection Chest: Chest palpation & inspection: normal inspection of the chest Resp: Effort & Inspection: normal respiratory effort Auscultation: clear to auscultation bilaterally Cardio: Rate: regular rate Rhythm: regular rhythm Peripheral pulses: Peripheral pulses 2+ throughout GI: Inspection: Yes normal to inspection Palpation (GI): Soft to palpation and nontender Auscultation: normal bowel sounds Back/Spine/Pelvis: Thoracic/Lumbar Spine: thoracic and lumbar spine normal to inspection Skin: General skin exam: no rashes or lesions noted Neuro: General: patient oriented x3, no focal motor deficits and normal sensation to monofilament Cranial nerves: Yes Equal, round and reactive pupils present Cognition (Neuro): normal cognition Speech: No Abnormal speech present Gait exam (Neuro): Normal gait present Motor exam (neuro): 5/5 motor strength present throughout Extrem: General: Yes normal to inspection, Yes no pedal edema and Yes no calf tenderness Course Course Course Narrative: 1849-chest x-rays consistent with fluid overload. BNP is elevated at 590. Troponin is indeterminate. EKG shows no ischemic changes. Plan to trend t roponin. Patient denies chest pain. Will give 40 mg of IV Lasix, recheck troponin and reassess Reevaluation(s) Reevaluation #1: 2200-repeat troponin unchanged. Patient is stable. I discussed the case with my attending physician and shared decision made to admit the patient for further workup. Patient had recent cardiac cath June 2021 at [facility]. Patient does not know results. Will call for report Reevaluation #2: 2230-Spoke to Dr Rivera who accepted admissiom MDM - SOB/Dyspnea MDM Narrative Medical decision making narrative: 81-year-old male here with URI symptoms for 3 days with some shortness of breath that he describes with moving around. No complaints of chest pain, leg swelling or leg pain, fever. On arrival vitals are stable. Will obtain labs, EKG, chest x-ray and COVID screen Consider pneumonia, congestive heart failure, viral syndrome Medical Records Attestation: I reviewed the patient's medical records. Lab Data Attestation: I reviewed the patient's lab results. Result diagrams: 11/27/21 17:57 11/27/21 17:57 Labs: Lab Results 11/27/21 11/27/21 11/27/21 Range/Units 17:57 17:57 17:57 WBC 8.1 (4.8-10.8) X10*3/uL RBC 5.01 (4.60-5.80) X10*6/uL Hgb 13.5 L (14.0-18.0) g/dl Hct 43.2 (42.0-52.0) % MCV 86.2 (80.0-98.0) fL MCH 26.9 L (27.0-33.0) pg MCHC 31.3 (31.0-36.0) g/dl RDW 17.4 H (11.0-16.0) % Plt Count 210 (160-400) X10*3/uL MPV 11.0 (9.4-12.4) fL Immature Gran % (Auto) 0.1 (0.0-0.4) % Neut % (Auto) 45.6 (45-73) % Lymph % (Auto) 37.7 (20-40) % [place] % (Auto) 8.6 (2-11) % Eos % (Auto) 7.5 H (0-4) % Baso % (Auto) 0.5 (0-2) % Lymph # (Auto) 3.1 (1.2-4.9) X10*3/uL [place] # (Auto) 0.7 (0.1-1.2) X10*3/uL Eos # (Auto) 0.6 H (0.0-0.4) X10*3/uL Baso # (Auto) 0.0 (0.0-0.2) X10*3/uL Abs Immat Gran (auto) 0.01 (0.00-0.03) X10*3/uL Absolute Neuts (auto) 3.7 (2.0-8.3) x10*3/uL Absolute Nucleated RBC 0.000 (0.0-0.012) X10*3/uL Nucleated RBC % (auto) 0.0 (0.0-0.2) /100WBC Sodium 142 (135-145) mmol/L Potassium 4.1 (3.3-5.1) mmol/L Chloride 109 H (96-108) mmol/L Carbon Dioxide 25 (22-29) mmol/L Anion Gap 12 (12-20) BUN 15 (9-16) mg/dL Creatinine 1.08 (0.5-1.4) mg/dL Estim Creat Clear Calc 52.9 Estimated GFR > 60 Random Glucose 172 H D (60-115) mg/dL Lactic Acid 1.9 (0.5-2.0) mmol/L Calcium 9.9 (8.4-10.2) mg/dL Magnesium 1.9 (1.6-2.6) mg/dL Total Bilirubin 0.3 (0.0-1.0) mg/dL Direct Bilirubin 0.2 (0.0-0.5) mg/dL AST 20 (5-37) U/L ALT 18 (0-40) U/L Alkaline Phosphatase 108 D (39-117) U/L Troponin I High Sens (<3.5-35.0) ng/L B-Natriuretic Peptide (<100) pg/mL Total Protein 7.4 (6.5-8.0) g/dL Albumin 3.9 (3.5-5.0) g/dL COVID-19 ([facility]) (Negative) COVID-19 Clin Com Influenza Type A ([facility]) (Negative) Influenza Type B ([facility]) (Negative) Influenza A & B Note 11/27/21 11/27/21 11/27/21 Range/Units 17:57 17:57 17:57 WBC (4.8-10.8) X10*3/uL RBC (4.60-5.80) X10*6/uL Hgb (14.0-18.0) g/dl Hct (42.0-52.0) % MCV (80.0-98.0) fL MCH (27.0-33.0) pg MCHC (31.0-36.0) g/dl RDW (11.0-16.0) % Plt Count (160-400) X10*3/uL MPV (9.4-12.4) fL Immature Gran % (Auto) (0.0-0.4) % Neut % (Auto) (45-73) % Lymph % (Auto) (20-40) % [place] % (Auto) (2-11) % Eos % (Auto) (0-4) % Baso % (Auto) (0-2) % Lymph # (Auto) (1.2-4.9) X10*3/uL [place] # (Auto) (0.1-1.2) X10*3/uL Eos # (Auto) (0.0-0.4) X10*3/uL Baso # (Auto) (0.0-0.2) X10*3/uL Abs Immat Gran (auto) (0.00-0.03) X10*3/uL Absolute Neuts (auto) (2.0-8.3) x10*3/uL Absolute Nucleated RBC (0.0-0.012) X10*3/uL Nucleated RBC % (auto) (0.0-0.2) /100WBC Sodium (135-145) mmol/L Potassium (3.3-5.1) mmol/L Chloride (96-108) mmol/L Carbon Dioxide (22-29) mmol/L Anion Gap (12-20) BUN (9-16) mg/dL Creatinine (0.5-1.4) mg/dL Estim Creat Clear Calc Estimated GFR Random Glucose (60-115) mg/dL Lactic Acid (0.5-2.0) mmol/L Calcium (8.4-10.2) mg/dL Magnesium (1.6-2.6) mg/dL Total Bilirubin (0.0-1.0) mg/dL Direct Bilirubin (0.0-0.5) mg/dL AST (5-37) U/L ALT (0-40) U/L Alkaline Phosphatase (39-117) U/L Troponin I High Sens 70.4 H (<3.5-35.0) ng/L B-Natriuretic Peptide 597 H (<100) pg/mL Total Protein (6.5-8.0) g/dL Albumin (3.5-5.0) g/dL COVID-19 ([facility]) Negative (Negative) COVID-19 Clin Com See Note Influenza Type A ([facility]) Negative (Negative) Influenza Type B ([facility]) Negative (Negative) Influenza A & B Note See Note 11/27/21 Range/Units 21:22 WBC (4.8-10.8) X10*3/uL RBC (4.60-5.80) X10*6/uL Hgb (14.0-18.0) g/dl Hct (42.0-52.0) % MCV (80.0-98.0) fL MCH (27.0-33.0) pg MCHC (31.0-36.0) g/dl RDW (11.0-16.0) % Plt Count (160-400) X10*3/uL MPV (9.4-12.4) fL Immature Gran % (Auto) (0.0-0.4) % Neut % (Auto) (45-73) % Lymph % (Auto) (20-40) % [place] % (Auto) (2-11) % Eos % (Auto) (0-4) % Baso % (Auto) (0-2) % Lymph # (Auto) (1.2-4.9) X10*3/uL [place] # (Auto) (0.1-1.2) X10*3/uL Eos # (Auto) (0.0-0.4) X10*3/uL Baso # (Auto) (0.0-0.2) X10*3/uL Abs Immat Gran (auto) (0.00-0.03) X10*3/uL Absolute Neuts (auto) (2.0-8.3) x10*3/uL Absolute Nucleated RBC (0.0-0.012) X10*3/uL Nucleated RBC % (auto) (0.0-0.2) /100WBC Sodium (135-145) mmol/L Potassium (3.3-5.1) mmol/L Chloride (96-108) mmol/L Carbon Dioxide (22-29) mmol/L Anion Gap (12-20) BUN (9-16) mg/dL Creatinine (0.5-1.4) mg/dL Estim Creat Clear Calc Estimated GFR Random Glucose (60-115) mg/dL Lactic Acid (0.5-2.0) mmol/L Calcium (8.4-10.2) mg/dL Magnesium (1.6-2.6) mg/dL Total Bilirubin (0.0-1.0) mg/dL Direct Bilirubin (0.0-0.5) mg/dL AST (5-37) U/L ALT (0-40) U/L Alkaline Phosphatase (39-117) U/L Troponin I High Sens 70.3 H (<3.5-35.0) ng/L B-Natriuretic Peptide (<100) pg/mL Total Protein (6.5-8.0) g/dL Albumin (3.5-5.0) g/dL COVID-19 ([facility]) (Negative) COVID-19 Clin Com Influenza Type A ([facility]) (Negative) Influenza Type B ([facility]) (Negative) Influenza A & B Note Imaging Data Chest x-ray: Attestation: I personally reviewed and interpreted this imaging study as follows: Radiologist's impression: EXAMINATION: XR CHEST CLINICAL INFORMATION: Cough and shortness of breath COMPARISON: None TECHNIQUE: 2 views of the chest were obtained. FINDINGS: Mild linear subsegmental atelectasis at the lung bases. No airspace consolidation no pleural effusion or pneumothorax. Normal heart size. Prominent central pulmonary vascularity. No overt pulmonary edema. Small amount of perifissural fluid noted. No acute osseous injury. Moderate S-shaped scoliotic curvature of the imaged spine. XR/XR chest 2V IMPRESSION: ? 1. Mild bibasilar subsegmental atelectasis. No airspace consolidation. 2. Mild pulmonary vascular congestion and trace fissural fluid. No overt pulmonary edema. ECG Data Attestation: I personally reviewed and interpreted this ECG as follows: ECG interpretation date: 11/27/21 ECG interpretation time: 17:52 Interpretation: Normal sinus rhythm with frequent PACs and PVCs with rate 81, normal SD, right bundle branch block Discharge Plan Discharge Clinical Impression: Congestive heart failure Patient Disposition: Admitted As Inpatient
[2021-11-27 18:06] LABS: MANUAL DIFF FLAG NO
[2021-11-27 18:15] LABS: Basophils Percent Auto 0.5 % (0-2); Eosinophils Absolute Auto 0.6 X10*3/uL (0.0-0.4); Eosinophils Percent Auto 7.5 % (0-4); Hematocrit 43.2 % (42.0-52.0); Hemoglobin 13.5 g/dl (14.0-18.0); Imm Gran Abs Auto 0.01 X10*3/uL (0.00-0.03); Imm Gran Pct Auto 0.1 % (0.0-0.4); Lymphocytes Absolute Auto 3.1 X10*3/uL (1.2-4.9); Lymphocytes Percent Auto 37.7 % (20-40); Mean Corpuscular HGB Conc 31.3 g/dl (31.0-36.0); Mean Corpuscular Hemoglobin 26.9 pg (27.0-33.0); Mean Corpuscular Volume 86.2 fL (80.0-98.0); Monocytes Absolute Auto 0.7 X10*3/uL (0.1-1.2); Monocytes Percent Auto 8.6 % (2-11); Neutrophils Absolute Auto 3.7 x10*3/uL (2.0-8.3); Neutrophils Percent Auto 45.6 % (45-73); Platelet Count 210 X10*3/uL (160-400); Red Blood Count 5.01 X10*6/uL (4.60-5.80); Red Cell Distribution Width 17.4 % (11.0-16.0); White Blood Count 8.1 X10*3/uL (4.8-10.8)
[2021-11-27 18:17] LABS: Lactic Acid 1.9 mmol/L (0.5-2.0)
[2021-11-27 18:23] LABS: Alanine Aminotransferase 18 U/L (0-40); Albumin Level 3.9 g/dL (3.5-5.0); Alkaline Phosphatase 108 U/L (39-117); Anion Gap 12 (12-20); Aspartate Amino Transferase 20 U/L (5-37); Bilirubin Direct 0.2 mg/dL (0.0-0.5); Bilirubin Total 0.3 mg/dL (0.0-1.0); Blood Urea Nitrogen 15 mg/dL (9-16); Calcium 9.9 mg/dL (8.4-10.2); Carbon Dioxide 25 mmol/L (22-29); Chloride 109 mmol/L (96-108); Creatinine Clr Calc Pharmacy 52.9; Estimated Glomerular Filt Rate > 60; Glucose Random 172 mg/dL (60-115); Magnesium 1.9 mg/dL (1.6-2.6); Potassium 4.1 mmol/L (3.3-5.1); Sodium 142 mmol/L (135-145); Total Protein 7.4 g/dL (6.5-8.0)
[2021-11-27 18:26] LABS: B Type Natriuretic Peptide 597 pg/mL (<100); COVID-19 Test Negative (Negative); IDNOW Serial# 16C4AD1C; Influenza A Negative (Negative); Influenza B2 Negative (Negative); Troponin-I High Sensitivity 70.4 ng/L (<3.5-35.0)
[2021-11-27 19:08] VITALS: BP 135/70; PULSE 74; RESP 20; TEMP 36.6; O2SAT 99
[2021-11-27] MEDS: Furosemide 40 MG/4 ML VIAL IVPUSH (19:12)
[2021-11-27 21:52] LABS: Troponin-I High Sensitivity 70.3 ng/L (<3.5-35.0)
[2021-11-27 22:08] VITALS: O2SAT 97
--- NOTE | 2021-11-27 22:27 | PM.IMHP ---
History of Present Illness Date of Service: 11/27/21 Chief Complaint: SOB 81-year-old male with past medical history of CKD, diabetes, hypercalcemia, HTN, NSTEMI, stroke arthritis, presents the hospital with complaints of shortness of breath. Patient reports that his symptoms started about a week ago, associated with orthopnea, PND, wet cough, with no sputum production. He has no chest pain, no palpitations. No previous similar episode. Reports no fever or chills. Reports that he sleeps on 4 pills at home. Denies any abdominal pain nausea or vomiting, no diarrhea constipation, no urinary symptoms and no lower extremity edema. On arrival to the ED patient with dynamic least stable with no significant abnormal vitals satting 90s on room air Labs are significant for WBC count of 8.1, hemoglobin of 13.5, BNP of 597, troponin of 70 remained flat, Chest x-ray shows vascular congestion Patient started on Lasix and will be admitted for further management Review of Systems Review of Systems: Yes all other systems are reviewed and are negative [facility] Medical History CKD stage 3 due to type 2 diabetes mellitus Diabetes mellitus Hypercalcemia Hypertension NSTEMI (non-ST elevated myocardial infarction) Osteoarthritis Social History Alcohol intake: former Patient Tobacco Use Status: Former Tobacco user Advance Directives: No Advance Directives Information Provided: No service: No Meds Allergies Allergy/AdvReac Type Severity Reaction Status Date / Time No Known Allergies Allergy Verified 07/02/21 03:41 Active Medications: Current Medications Pharmacy Consult (Consult Rx Perform Med Rec) 1 each MISCELLANE ONCE PRN PRN Reason: Consult order Home Medications Medication Instructions Recorded Confirmed Last Taken Type aspirin 81 mg chewable tablet 1 tab PO DAILY 07/02/21 07/02/21 Unknown History cetirizine 10 mg tablet 1 tab PO DAILY 07/02/21 07/02/21 Unknown History cholecalciferol (vitamin D3) 25 1 cap PO DAILY 07/02/21 07/02/21 Unknown History mcg (1,000 unit) capsule (Vitamin D3) docusate sodium 100 mg capsule 1 cap PO BID 07/02/21 07/02/21 Unknown History simvastatin 40 mg tablet 1 tab PO BEDTIME 07/02/21 07/02/21 Unknown History tolterodine 2 mg capsule,extended 1 cap PO DAILY 07/02/21 07/02/21 Unknown History release 24 hr tramadol 50 mg tablet 1 tab PO Q12H PRN Pain 07/02/21 07/02/21 Unknown History Physical Exam Vital Signs and Narrative: Vital Signs: Last Vital Signs Temp 97.9 F 11/27/21 19:08 Pulse 74 11/27/21 19:08 Resp 20 11/27/21 19:08 BP 135/70 11/27/21 19:08 Pulse Ox 97 11/27/21 22:08 O2 Del Method 11/27/21 22:08 BMI result Body Mass Index 29.0 Const: General: cooperative and no acute distress Orientation/consciousness: patient oriented x3 Eyes: General: appearance normal, both eyes and all related structures Resp: Effort & Inspection: normal respiratory effort Auscultation: clear to auscultation bilaterally Cardio: Rate: regular rate Rhythm: regular rhythm GI: Palpation (GI): Soft to palpation Auscultation: normal bowel sounds Skin: General skin exam: no rashes or lesions noted Neuro: General: patient oriented x3 Cognition (Neuro): normal cognition Extrem: Other: Trace pedal edema General: Yes normal to inspection and Yes no pedal edema Results Labs CBC and Chem 7: 11/27/21 17:57 11/27/21 17:57 Labs: Laboratory Results - last 24 hr 11/27/21 11/27/21 11/27/21 17:57 17:57 17:57 MCV 86.2 MCH 26.9 L MCHC 31.3 RDW 17.4 H Plt Count 210 MPV 11.0 Immature Gran % (Auto) 0.1 Neut % (Auto) 45.6 Lymph % (Auto) 37.7 [place] % (Auto) 8.6 Eos % (Auto) 7.5 H Baso % (Auto) 0.5 Lymph # (Auto) 3.1 [place] # (Auto) 0.7 Eos # (Auto) 0.6 H Baso # (Auto) 0.0 Abs Immat Gran (auto) 0.01 Absolute Neuts (auto) 3.7 Absolute Nucleated RBC 0.000 Nucleated RBC % (auto) 0.0 Anion Gap 12 Estim Creat Clear Calc 52.9 Estimated GFR > 60 Random Glucose 172 H D Lactic Acid 1.9 Calcium 9.9 Magnesium 1.9 Total Bilirubin 0.3 Direct Bilirubin 0.2 AST 20 ALT 18 Alkaline Phosphatase 108 D B-Natriuretic Peptide Total Protein 7.4 Albumin 3.9 COVID-19 ([facility]) COVID-19 Clin Com Influenza Type A ([facility]) Influenza Type B ([facility]) Influenza A & B Note 11/27/21 11/27/21 11/27/21 17:57 17:57 17:57 MCV MCH MCHC RDW Plt Count MPV Immature Gran % (Auto) Neut % (Auto) Lymph % (Auto) [place] % (Auto) Eos % (Auto) Baso % (Auto) Lymph # (Auto) [place] # (Auto) Eos # (Auto) Baso # (Auto) Abs Immat Gran (auto) Absolute Neuts (auto) Absolute Nucleated RBC Nucleated RBC % (auto) Anion Gap Estim Creat Clear Calc Estimated GFR Random Glucose Lactic Acid Calcium Magnesium Total Bilirubin Direct Bilirubin AST ALT Alkaline Phosphatase B-Natriuretic Peptide 597 H Total Protein Albumin COVID-19 ([facility]) Negative COVID-19 Clin Com See Note Influenza Type A ([facility]) Negative Influenza Type B ([facility]) Negative Influenza A & B Note See Note Imaging Radiologist's Impressions: Impressions Chest X-Ray 11/27/21 17:50 IMPRESSION: 1. Mild bibasilar subsegmental atelectasis. No airspace consolidation. 2. Mild pulmonary vascular congestion and trace fissural fluid. No overt pulmonary edema. Assessment and Plan (1) Congestive heart failure: Status: Acute Plan 87-year-old male with past medical history of diabetes, CKD, hypertension and NSTEMI who presents to the hospital with complaints of shortness of breath found to have new onset CHF # acute CHF - with history of CAD status post NSTEMI in June - has elevated BNP and chest x-ray evidence of pulmonary congestion - this time will start patient on Lasix, strict I&O, daily weight, low-sodium diet - echocardiogram - cardiology consulted # NSTEMI - no chest pain - cath done at [facility] showed no vessel disease - patient on metoprolol, will continue, continue aspirin as well as statin # diabetes - does not appear to be on any medications - pending med review by pharmacy - will add low-dose and skin insulin - diabetic diet DVT prophylaxis: Heparin subQ Given new onset CHF and need for further workup patient will require at minimum 2 night hospital stay for further management and evaluation Quality Stroke Does the patient have a stroke diagnosis?: No VTE Prior VTE?: No VTE Risk Level:: Medical - moderate - high VTE Device Contraindication: Treatment Not Indicated VTE Drug Contraindication: N/A - Med Ordered
[2021-11-27] MEDS: Enoxaparin Sodium 40 MG/0.4 ML SYRINGE SUBCUT (23:17)
[2021-11-27] MEDS: 0.9 % Sodium Chloride Flush 3 ML SYRINGE IVFLUSH (23:17)
[2021-11-28] VITALS (8 sets, daily range): BP systolic 122–144; BP diastolic 73–82; PULSE 52–78; RESP 15–24; TEMP 36.5–37; O2SAT 95–99
[2021-11-28 06:49] LABS: MANUAL DIFF FLAG NO
[2021-11-28 07:00] LABS: Basophils Percent Auto 0.2 % (0-2); Eosinophils Absolute Auto 0.6 X10*3/uL (0.0-0.4); Eosinophils Percent Auto 6.7 % (0-4); Hematocrit 42.9 % (42.0-52.0); Hemoglobin 13.8 g/dl (14.0-18.0); Imm Gran Abs Auto 0.02 X10*3/uL (0.00-0.03); Imm Gran Pct Auto 0.2 % (0.0-0.4); Lymphocytes Absolute Auto 3.1 X10*3/uL (1.2-4.9); Lymphocytes Percent Auto 37.1 % (20-40); Mean Corpuscular HGB Conc 32.2 g/dl (31.0-36.0); Mean Corpuscular Hemoglobin 27.3 pg (27.0-33.0); Monocytes Absolute Auto 0.8 X10*3/uL (0.1-1.2); Monocytes Percent Auto 9.6 % (2-11); Neutrophils Absolute Auto 3.9 x10*3/uL (2.0-8.3); Neutrophils Percent Auto 46.2 % (45-73); Platelet Count 202 X10*3/uL (160-400); Red Blood Count 5.05 X10*6/uL (4.60-5.80); Red Cell Distribution Width 17.6 % (11.0-16.0); White Blood Count 8.4 X10*3/uL (4.8-10.8)
--- NOTE | 2021-11-28 07:00 | CA_ITS ---
Transthoracic Echocardiogram Patient (Last, First, Middle): Glenn Luna, Gender: Male Date of : 1940 Age: 81 Procedure Date: 11/28/2021 Procedure Type: Transthoracic Echocardiogram Location: [facility] [place] Height: 167.64 cm Weight: 81.65 kg BSA: 1.91 m2 Heart Rate: bpm BP: 140 / 76 mmHg Continuity Editor: Referring MD: Juan José Rivera MD Symptoms: new onset CHF Study Quality: Fair ECG Rhythm: Sinus with PVCs Conclusions: - Due to frequent PVCs, difficult to quantify LVEF. Probably mildly reduced. Findings Left Ventricle Normal left ventricular cavity size. There is moderately increased left ventricular wall thickness. Due to frequent PVCs, difficult to quantify LVEF. Probably mildly reduced. Wall Motion Rest Echo Findings The basal inferior segment is akinetic. Prior Study Comparison No significant change compared to prior study dated: 07/02/2021. Measurements 2D Linear Measurements IVSd: 1.37 0.6-0.9/0.6-1.0 cm LVIDd: 4.32 3.9-5.3/4.2-5.9 cm LVIDd Index: 2.26 2.4-3.2/2.2-3.1 cm/m2 LVIDs: 3.31 2.0-3.6 cm LVPWd: 1.43 0.7-1.1 cm Ao Root: 3.00 2.1-3.5 cm LA Diam: 3.40 2.7-3.8/3.0-4.0 cm LAIDs Index: 1.78 1.5-2.3 cm/m2 LV Mass: 291.54 67-162/88-224 g LV Mass Index: 152.64 43-95/49-115 g/m2 LVOT Diam: 2.10 3.0+(-)1.3 cm 2D Systolic Function EF 4C: 35.40 >55% EF 2C: 47.70 >55% EF BiP: 40.90 >55% Mitral Valve MV Pk E: 0.68 MV PK A: 0.39 MV Decel Time: 195.00 E/A: 1.80 E'Lateral: 5.44 E'Medial: 4.24 E/E' Med: 16.10 E/E' Lat: 12.50 PHT: 57.00 MVA PHT: 3.86 Decel Lamoure: 3.50 Aortic Valve AoV Pk Bladimir: 1.12 AoV Mn Bladimir: 0.76 AoV VTI: 0.26 AoV Pk Grad: 5.00 Aov Mn Grad: 3.00 RIK Cont.VTI: 2.09 LVOT LVOT Pk Bladimir: 0.84 LVOT Mn Bladimir: 0.49 LVOT VTI: 0.15 LVOT Pk Grad: 3.00 LVOT Mn Grad: 1.00 LVOT Diam: 2.10 LVOT Area: 3.46 Diastolic Function MV Pk E: 0.68 MV Pk A: 0.39 E/A: 1.80 E'Medial: 4.24 E/E' Med: 16.10 E' Laterial: 5.44 E/E' Lat: 12.50 Right Ventricle TAPSE (mm): 23.00 TVS' Bladimir: 8.00 Tricuspid Valve TR Pk Bladimir: 1.45 TR Pk Grad: 8.00 RA Press: 3.00 RVSP: 11.00 Great Vessels Aorta Ao Root-2D: 3.00 2.0-3.7 cm Ao Asc: 3.00 2.1-3.4 cm Pulmonary Valve PV Pk Bladimir: 0.71 Peak PV Grad: 2.00 Updated in Other Vendor System with Status of Final Bryan Leblanc MD electronically signed on 11/28/2021 2:18:07 PM with status of Final
[2021-11-28 07:36] LABS: Anion Gap 16 (12-20); Blood Urea Nitrogen 14 mg/dL (9-16); Calcium 9.9 mg/dL (8.4-10.2); Carbon Dioxide 23 mmol/L (22-29); Chloride 106 mmol/L (96-108); Creatinine Clr Calc Pharmacy 59.5; Estimated Glomerular Filt Rate > 60; Glucose Random 107 mg/dL (60-115); Potassium 4.3 mmol/L (3.3-5.1); Sodium 141 mmol/L (135-145)
[2021-11-28 07:52] LABS: Glucose, Whole Blood 105 mg/dL (60-115)
--- NOTE | 2021-11-28 08:23 | PHA.MEDREC ---
Pharmacy Consult ? Medication Reconciliation Pharmacy has completed the medication reconciliation. Reviewed medications via Assisted living facility med records
[2021-11-28] MEDS: 0.9 % Sodium Chloride Flush 3 ML SYRINGE IVFLUSH ×2 (08:50→20:58)
[2021-11-28 10:08] LABS: Estimated Average Glucose 148 mg/dL; Hemoglobin A1c % 6.8 %
--- NOTE | 2021-11-28 10:22 | P.CONCA_ITS ---
History of Present Illness History of Present Illness Date of Service: 11/28/21 Chief complaint: new onset chf Narrative: This is a cardiology consultation regarding shortness of breath. For apparently, for the last few weeks he has been feeling short of breath with activity. Also feels as though his wheezing. No clear anginal-type chest pains. Thought to be in congestive heart failure and hence was admitted. We had seen him in June of this year. At that time, he had complained of chest pain and had some elevation in troponins. Multiple medical comorbidities including hypertension, diabetes, hyperlipidemia, chronic kidney disease among others. At that time, he was transferred to [facility] for cardiac catheterization but that did not show anything of significance. Review of Systems Review of Systems: Yes all other systems are reviewed and are negative Constitutional: Constitutional: Reports as per HPI Eyes: Eyes: Reports as per HPI ENT: Reports as per HPI Cardiovascular: Cardiovascular: Reports as per HPI, Denies acrocyanosis, Denies cool extremities, Denies chest pain, Denies leg edema, Denies lightheadedness, Denies palpitations and Reports dyspnea Respiratory: Respiratory: Reports as per HPI, Reports no additional respiratory complaints and Reports dyspnea Gastrointestinal: Gastrointestinal: Reports as per HPI and Reports no additional gastrointestinal complaints Genitourinary: Genitourinary: Reports no additional male genitourinary complaints and Reports as per HPI Musculoskeletal: Musculoskeletal: Reports no additional musculoskeletal complaints and Reports as per HPI Integumentary/Breasts: Skin/Breast: Reports system reviewed and no additional complaints, except as docu Neurologic: Reports system reviewed and no additional complaints, except as documented and Reports as per HPI Psychiatric: Psychiatric: Reports no additional psychiatric complaints and Reports as per HPI Endocrine: Endocrine: Reports no additional endocrine complaints, Reports as per HPI and Denies palpitations Hematologic/Lymphatic: Hematologic/Lymphatic: Reports no additional hematologic/lymphatic complaints and Reports as per HPI Allergic/Immunologic: Allergic/Immunologic: Reports no additional allergic/immunologic complaints and Reports as per HPI PMFSH Past Medical History Medical History CKD stage 3 due to type 2 diabetes mellitus Diabetes mellitus Hypercalcemia Hypertension NSTEMI (non-ST elevated myocardial infarction) Osteoarthritis Family History Family History (Updated 11/28/21 @ 10:24 by Bryan Leblanc MD) Mother Hypertension Social History Social History Alcohol intake: never Patient Tobacco Use Status: Former Tobacco user service: No Meds Allergies Allergy/AdvReac Type Severity Reaction Status Date / Time No Known Allergies Allergy Verified 07/02/21 03:41 Active Medications: Current Medications Acetaminophen (Acetaminophen 325 Mg Tablet) 650 mg PO Q6H PRN PRN Reason: Pain, Mild (Pain Scale 1-3) Aspirin (Aspirin 81 Mg Tab.Chew) 81 mg PO DAILY [facility] Atorvastatin Calcium (Atorvastatin Calcium 80 Mg Tablet) 80 mg PO BEDTIME [facility] Dextrose (Dextrose 50 % 25 Gm/50 Ml Syringe) 25 gm IVPUSH Q15M PRN; Protocol PRN Reason: per Hypoglycemia Standing Ord. Docusate Sodium (Docusate Sodium 100 Mg Capsule) 100 mg PO DAILY PRN PRN Reason: Constipation Docusate Sodium (Docusate Sodium 100 Mg Capsule) 100 mg PO BID [facility] Enoxaparin Sodium (Enoxaparin Sodium 40 Mg/0.4 Ml Syringe) 40 mg SUBCUT Q24H [facility] Last Admin: 11/27/21 23:17 Dose: 40 mg Furosemide (Furosemide 40 Mg/4 Ml Vial) 40 mg IVPUSH DAILY [facility]; Protocol Glucose (Glucose Gel 15 Gm Gel..Gram.) 15 gm PO Q15M PRN; Protocol PRN Reason: per Hypoglycemia Standing Ord. Insulin Human Lispro (Insulin Lispro 100 Unit/Ml 3 Ml Vial) 0 unit SUBCUT QIDACHS [facility]; Protocol Last Admin: 11/28/21 07:40 Dose: Not Given Loratadine (Loratadine 10 Mg Tablet) 10 mg PO DAILY [facility] Metoprolol Tartrate (Metoprolol Tartrate 12.5 Mg Halftab) 12.5 mg PO BID [facility]; Protocol Nitroglycerin (Nitroglycerin 0.4 Mg Tab.Subl) 0.4 mg SUBLINGUAL DAILY PRN PRN Reason: Chest Pain Ondansetron HCl (Ondansetron Hcl 4 Mg/2 Ml Vial) 4 mg IVPUSH Q8H PRN PRN Reason: Nausea and Vomiting Pharmacy Consult (Consult Rx Perform Med Rec) 1 each MISCELLANE ONCE PRN PRN Reason: Consult order Sodium Chloride (0.9 % Sodium Chloride Flush 3 Ml Syringe) 3 ml IVFLUSH QSHIFT [facility] Last Admin: 11/28/21 08:50 Dose: 3 ml Tolterodine Tartrate (Tolterodine Tartrate La 2 Mg Cap.Er.24h) 2 mg PO DAILY [facility] Vitamin D (Cholecalciferol (Vitamin D3) 25 Mcg Tablet) 25 mcg PO DAILY [facility] Home Medications Medication Instructions Recorded Confirmed Last Taken Type aspirin 81 mg chewable tablet 1 tab PO DAILY 07/02/21 11/28/21 Unknown History cetirizine 10 mg tablet 1 tab PO DAILY 07/02/21 11/28/21 Unknown History cholecalciferol (vitamin D3) 25 1 cap PO DAILY 07/02/21 11/28/21 Unknown History mcg (1,000 unit) capsule (Vitamin D3) docusate sodium 100 mg capsule 1 cap PO BID 07/02/21 11/28/21 Unknown History tolterodine 2 mg capsule,extended 1 cap PO DAILY 07/02/21 11/28/21 Unknown His tory release 24 hr tramadol 50 mg tablet 1 tab PO Q12H PRN Pain 07/02/21 11/28/21 Unknown History acetaminophen 325 mg tablet 650 mg PO Q6H PRN Pain 11/28/21 11/28/21 Unknown History (Tylenol) atorvastatin 80 mg tablet 1 tab PO BEDTIME 11/28/21 11/28/21 Unknown History nitroglycerin 0.4 mg sublingual See Rx Instructions .Route 11/28/21 11/28/21 Unknown History tablet (Nitrostat) .COMPLEX PRN Chest Pain Physical Exam Vital Signs: Vital Signs: Last Vital Signs Temp 97.7 F 11/28/21 09:52 Pulse 78 11/28/21 09:52 Resp 24 H 11/28/21 09:52 BP 144/80 H 11/28/21 09:52 Pulse Ox 95 11/28/21 09:52 O2 Del Method 11/28/21 09:52 BMI result Body Mass Index 29.0 Const: General: comfortable and no acute distress Orientat ion/consciousness: patient oriented x3 HEENT: Other: Unremarkable Head: Yes normal to inspection Neck: Neck: Yes normal visual inspection Chest: Chest palpation & inspection: normal inspection of the chest Resp: Other: Minimal crackles at base Cardio: Palpation: normal PMI Heart sounds: S1 normal heart sound present, S2 normal heart sound present, no gallops, no murmurs and no rubs GI: Palpation (GI): Soft to palpation Back/Spine/Pelvis: Other: unremarkable Skin: General skin exam: no rashes or lesions noted Neuro: General: patient oriented x3 Extrem: General: Yes normal to inspection Psych: Mental Status: mental status grossly normal Objective Labs and Meds Result diagrams: 11/28/21 05:52 11/28/21 05:52 Lab results: Laboratory Results - last 24 hr 11/27/21 11/27/21 11/27/21 17:57 17:57 17:57 WBC 8.1 RBC 5.01 Hgb 13.5 L Hct 43.2 MCV 86.2 MCH 26.9 L MCHC 31.3 RDW 17.4 H Plt Count 210 MPV 11.0 Immature Gran % (Auto) 0.1 Neut % (Auto) 45.6 Lymph % (Auto) 37.7 [place] % (Auto) 8.6 Eos % (Auto) 7.5 H Baso % (Auto) 0.5 Lymph # (Auto) 3.1 [place] # (Auto) 0.7 Eos # (Auto) 0.6 H Baso # (Auto) 0.0 Abs Immat Gran (auto) 0.01 Absolute Neuts (auto) 3.7 Absolute Nucleated RBC 0.000 Nucleated RBC % (auto) 0.0 Sodium 142 Potassium 4.1 Chloride 109 H Carbon Dioxide 25 Anion Gap 12 BUN 15 Creatinine 1.08 Estim Creat Clear Calc 52.9 Estimated GFR > 60 POC Glucose Random Glucose 172 H D Estimat Average Glucose Hemoglobin A1c % Lactic Acid 1.9 Calcium 9.9 Magnesium 1.9 Total Bilirubin 0.3 Direct Bilirubin 0.2 AST 20 ALT 18 Alkaline Phosphatase 108 D Troponin I High Sens B-Natriuretic Peptide Total Protein 7.4 Albumin 3.9 COVID-19 ([facility]) COVID-19 Clin Com Influenza Type A ([facility]) Influenza Type B ([facility]) Influenza A & B Note 11/27/21 11/27/21 11/27/21 17:57 17:57 17:57 WBC RBC Hgb Hct MCV MCH MCHC RDW Plt Count MPV Immature Gran % (Auto) Neut % (Auto) Lymph % (Auto) [place] % (Auto) Eos % (Auto) Baso % (Auto) Lymph # (Auto) [place] # (Auto) Eos # (Auto) Baso # (Auto) Abs Immat Gran (auto) Absolute Neuts (auto) Absolute Nucleated RBC Nucleated RBC % (auto) Sodium Potassium Chloride Carbon Dioxide Anion Gap BUN Creatinine Estim Creat Clear Calc Estimated GFR POC Glucose Random Glucose Estimat Average Glucose Hemoglobin A1c % Lactic Acid Calcium Magnesium Total Bilirubin Direct Bilirubin AST ALT Alkaline Phosphatase Troponin I High Sens 70.4 H B-Natriuretic Peptide 597 H Total Protein Albumin COVID-19 ([facility]) Negative COVID-19 Clin Com See Note Influenza Type A ([facility]) Negative Influenza Type B ([facility]) Negative Influenza A & B Note See Note 11/27/21 11/28/21 11/28/21 21:22 05:52 05:52 WBC 8.4 RBC 5.05 Hgb 13.8 L Hct 42.9 MCV 85.0 MCH 27.3 MCHC 32.2 RDW 17.6 H Plt Count 202 MPV 11.0 Immature Gran % (Auto) 0.2 Neut % (Auto) 46.2 Lymph % (Auto) 37.1 [place] % (Auto) 9.6 Eos % (Auto) 6.7 H Baso % (Auto) 0.2 Lymph # (Auto) 3.1 [place] # (Auto) 0.8 Eos # (Auto) 0.6 H Baso # (Auto) 0.0 Abs Immat Gran (auto) 0.02 Absolute Neuts (auto) 3.9 Absolute Nucleated RBC 0.000 Nucleated RBC % (auto) 0.0 Sodium 141 Potassium 4.3 Chloride 106 Carbon Dioxide 23 Anion Gap 16 BUN 14 Creatinine 0.96 Estim Creat Clear Calc 59.5 Estimated GFR > 60 POC Glucose Random Glucose 107 D Estimat Average Glucose Hemoglobin A1c % Lactic Acid Calcium 9.9 Magnesium Total Bilirubin Direct Bilirubin AST ALT Alkaline Phosphatase Troponin I High Sens 70.3 H B-Natriuretic Peptide Total Protein Albumin COVID-19 ([facility]) COVID-19 Clin Com Influenza Type A ([facility]) Influenza Type B ([facility]) Influenza A & B Note 11/28/21 11/28/21 05:52 07:11 WBC RBC Hgb Hct MCV MCH MCHC RDW Plt Count MPV Immature Gran % (Auto) Neut % (Auto) Lymph % (Auto) [place] % (Auto) Eos % (Auto) Baso % (Auto) Lymph # (Auto) [place] # (Auto) Eos # (Auto) Baso # (Auto) Abs Immat Gran (auto) Absolute Neuts (auto) Absolute Nucleated RBC Nucleated RBC % (auto) Sodium Potassium Chloride Carbon Dioxide Anion Gap BUN Creatinine Estim Creat Clear Calc Estimated GFR POC Glucose 105 Random Glucose Estimat Average Glucose 148 Hemoglobin A1c % 6.8 Lactic Acid Calcium Magnesium Total Bilirubin Direct Bilirubin AST ALT Alkaline Phosphatase Troponin I High Sens B-Natriuretic Peptide Total Protein Albumin COVID-19 ([facility]) COVID-19 Clin Com Influenza Type A ([facility]) Influenza Type B ([facility]) Influenza A & B Note ECG Interpretation: EKG EKG with underlying sinus rhythm with frequent premature ventricular contractions. Imaging Radiologist's impression: Impressions Chest X-Ray 11/27/21 17:50 IMPRESSION: 1. Mild bibasilar subsegmental atelectasis. No airspace consolidation. 2. Mild pulmonary vascular congestion and trace fissural fluid. No overt pulmonary edema. Assessment and Plan (1) Acute diastolic (congestive) heart failure: Status: Acute (2) PVC (premature ventricular contraction): Status: Acute Plan Cardiac studies reviewed. Last echocardiogram with LVEF 54%. Basal inferior akinesis. Mildly decreased at ventricular function. No significant valvular issues. Cardiac catheterization from June 2021 with nonobstructive disease and no more than mild disease. Chest x-ray with mild bibasilar atelectasis. No consolidation. Mild pulmonary vascular congestion. High sensitivity troponins are elevated. 70. Similar to June. Cardiac BNP slightly increased to 597. Normal creatinine. Overall, probable diastolic heart failure. Not clear if PVCs play a role. Fr equent PVCs can also lead to cardiomyopathy. At this time, we can do IV Lasix empirically. We will recheck echocardiogram to assess LVEF. Then possibly increased beta-blockers suppress PVCs. Will follow with you. Procedures Date of Service Date of Service: 11/28/21
[2021-11-28] MEDS: Metoprolol Tartrate 12.5 MG HALFTAB PO ×2 (10:23→20:57)
[2021-11-28] MEDS: Furosemide 40 MG/4 ML VIAL IVPUSH (10:23)
--- NOTE | 2021-11-28 11:43 | MHC.CM.PN ---
Meet with patient for CM assessment: - From [place] [facility] - Would like VNA @ D/C - Vax'd - IMM delivered - Completed HCP, copy in chart - Will need a ride @ d/c
[2021-11-28 11:51] LABS: Glucose, Whole Blood 125 mg/dL (60-115)
--- NOTE | 2021-11-28 12:52 | HO.PM.IMPN ---
Subjective Subjective Date of Service: 11/28/21 Interval History: c/o dyspnea no chest pain Review of Systems Review of Systems: Yes all other systems are reviewed and are negative Physical Exam Vital Signs: Vital Signs: Last Vital Signs Temp 98.3 F 11/28/21 11:51 Pulse 71 11/28/21 11:51 Resp 20 11/28/21 11:51 BP 123/79 11/28/21 11:51 Pulse Ox 95 11/28/21 11:51 O2 Del Method 11/28/21 11:51 BMI result Body Mass Index 29.0 Gen: in no acute distress HEENT: sclera anicteric, moist mucus membranes Neck: supple Lungs: bibasilar inspiratory crackles Heart: regular rate and rhythm, no murmurs Abd: soft, non-tender, non-distended Ext: no edema Skin: warm/well-perfused Neuro: alert and oriented x3, no focal findings Psych: appropriate affect Objective Data Active Medications Acetaminophen (Acetaminophen 325 Mg Tablet) 650 mg PO Q6H PRN PRN Reason: Pain, Mild (Pain Scale 1-3) Aspirin (Aspirin 81 Mg Tab.Chew) 81 mg PO DAILY [facility] Atorvastatin Calcium (Atorvastatin Calcium 80 Mg Tablet) 80 mg PO BEDTIME [facility] Dextrose (Dextrose 50 % 25 Gm/50 Ml Syringe) 25 gm IVPUSH Q15M PRN; Protocol PRN Reason: per Hypoglycemia Standing Ord. Docusate Sodium (Docusate Sodium 100 Mg Capsule) 100 mg PO DAILY PRN PRN Reason: Constipation Docusate Sodium (Docusate Sodium 100 Mg Capsule) 100 mg PO BID [facility] Enoxaparin Sodium (Enoxaparin Sodium 40 Mg/0.4 Ml Syringe) 40 mg SUBCUT Q24H [facility] Last Admin: 11/27/21 23:17 Dose: 40 mg Documented By: ERIC Furosemide (Furosemide 40 Mg/4 Ml Vial) 40 mg IVPUSH DAILY [facility]; Protocol Last Admin: 11/28/21 10:23 Dose: 40 mg Documented By: DANIEL Glucose (Glucose Gel 15 Gm Gel..Gram.) 15 gm PO Q15M PRN; Protocol PRN Reason: per Hypoglycemia Standing Ord. Insulin Human Lispro (Insulin Lispro 100 Unit/Ml 3 Ml Vial) 0 unit SUBCUT QIDACHS [facility]; Protocol Last Admin: 11/28/21 11:52 Dose: Not Given Documented By: DANIEL Non-Admin Reason: No Insulin Coverage Loratadine (Loratadine 10 Mg Tablet) 10 mg PO DAILY [facility] Metoprolol Tartrate (Metoprolol Tartrate 12.5 Mg Halftab) 12.5 mg PO BID [facility]; Protocol Last Admin: 11/28/21 10:23 Dose: 12.5 mg Documented By: DANIEL Nitroglycerin (Nitroglycerin 0.4 Mg Tab.Subl) 0.4 mg SUBLINGUAL DAILY PRN PRN Reason: Chest Pain Ondansetron HCl (Ondansetron Hcl 4 Mg/2 Ml Vial) 4 mg IVPUSH Q8H PRN PRN Reason: Nausea and Vomiting Pharmacy Consult (Consult Rx Perform Med Rec) 1 each MISCELLANE ONCE PRN PRN Reason: Consult order Sodium Chloride (0.9 % Sodium Chloride Flush 3 Ml Syringe) 3 ml IVFLUSH QSHIFT [facility] Last Admin: 11/28/21 08:50 Dose: 3 ml Documented By: JAMMIE Tolterodine Tartrate (Tolterodine Tartrate La 2 Mg Cap.Er.24h) 2 mg PO DAILY [facility] Vitamin D (Cholecalciferol (Vitamin D3) 25 Mcg Tablet) 25 mcg PO DAILY [facility] Labs CBC & Chem 7: 11/28/21 05:52 11/28/21 05:52 Labs: Laboratory Results - last 24 hr 11/27/21 11/27/21 11/27/21 17:57 17:57 17:57 MCV 86.2 MCH 26.9 L MCHC 31.3 RDW 17.4 H Plt Count 210 MPV 11.0 Immature Gran % (Auto) 0.1 Neut % (Auto) 45.6 Lymph % (Auto) 37.7 [place] % (Auto) 8.6 Eos % (Auto) 7.5 H Baso % (Auto) 0.5 Lymph # (Auto) 3.1 [place] # (Auto) 0.7 Eos # (Auto) 0.6 H Baso # (Auto) 0.0 Abs Immat Gran (auto) 0.01 Absolute Neuts (auto) 3.7 Absolute Nucleated RBC 0.000 Nucleated RBC % (auto) 0.0 Anion Gap 12 Estim Creat Clear Calc 52.9 Estimated GFR > 60 POC Glucose Random Glucose 172 H D Estimat Average Glucose Hemoglobin A1c % Lactic Acid 1.9 Calcium 9.9 Magnesium 1.9 Total Bilirubin 0.3 Direct Bilirubin 0.2 AST 20 ALT 18 Alkaline Phosphatase 108 D B-Natriuretic Peptide Total Protein 7.4 Albumin 3.9 COVID-19 ([facility]) COVID-19 Clin Com Influenza Type A ([facility]) Influenza Type B ([facility]) Influenza A & B Note 11/27/21 11/27/21 11/27/21 17:57 17:57 17:57 MCV MCH MCHC RDW Plt Count MPV Immature Gran % (Auto) Neut % (Auto) Lymph % (Auto) [place] % (Auto) Eos % (Auto) Baso % (Auto) Lymph # (Auto) [place] # (Auto) Eos # (Auto) Baso # (Auto) Abs Immat Gran (auto) Absolute Neuts (auto) Absolute Nucleated RBC Nucleated RBC % (auto) Anion Gap Estim Creat Clear Calc Estimated GFR POC Glucose Random Glucose Estimat Average Glucose Hemoglobin A1c % Lactic Acid Calcium Magnesium Total Bilirubin Direct Bilirubin AST ALT Alkaline Phosphatase B-Natriuretic Peptide 597 H Total Protein Albumin COVID-19 ([facility]) Negative COVID-19 Clin Com See Note Influenza Type A ([facility]) Negative Influenza Type B ([facility]) Negative Influenza A & B Note See Note 11/28/21 11/28/21 11/28/21 05:52 05:52 05:52 MCV 85.0 MCH 27.3 MCHC 32.2 RDW 17.6 H Plt Count 202 MPV 11.0 Immature Gran % (Auto) 0.2 Neut % (Auto) 46.2 Lymph % (Auto) 37.1 [place] % (Auto) 9.6 Eos % (Auto) 6.7 H Baso % (Auto) 0.2 Lymph # (Auto) 3.1 [place] # (Auto) 0.8 Eos # (Auto) 0.6 H Baso # (Auto) 0.0 Abs Immat Gran (auto) 0.02 Absolute Neuts (auto) 3.9 Absolute Nucleated RBC 0.000 Nucleated RBC % (auto) 0.0 Anion Gap 16 Estim Creat Clear Calc 59.5 Estimated GFR > 60 POC Glucose Random Glucose 107 D Estimat Average Glucose 148 Hemoglobin A1c % 6.8 Lactic Acid Calcium 9.9 Magnesium Total Bilirubin Direct Bilirubin AST ALT Alkaline Phosphatase B-Natriuretic Peptide Total Protein Albumin COVID-19 ([facility]) COVID-19 Clin Com Influenza Type A ([facility]) Influenza Type B ([facility]) Influenza A & B Note 11/28/21 11/28/21 07:11 11:28 MCV MCH MCHC RDW Plt Count MPV Immature Gran % (Auto) Neut % (Auto) Lymph % (Auto) [place] % (Auto) Eos % (Auto) Baso % (Auto) Lymph # (Auto) [place] # (Auto) Eos # (Auto) Baso # (Auto) Abs Immat Gran (auto) Absolute Neuts (auto) Absolute Nucleated RBC Nucleated RBC % (auto) Anion Gap Estim Creat Clear Calc Estimated GFR POC Glucose 105 125 H Random Glucose Estimat Average Glucose Hemoglobin A1c % Lactic Acid Calcium Magnesium Total Bilirubin Direct Bilirubin AST ALT Alkaline Phosphatase B-Natriuretic Peptide Total Protein Albumin COVID-19 ([facility]) COVID-19 Clin Com Influenza Type A ([facility]) Influenza Type B ([facility]) Influenza A & B Note Assessment and Plan (1) Acute diastolic (congestive) heart failure: Status: Acute [facility] d#2 81yo M with CKD3, DM2, HTN, nonobstructive CAD [cardiac cath June 2021] admitted tih CHF exacerbation # CHF exacerbation - likely preserved EF [LVEF 54% June 2021], continue IV furosemide, Cardilogy consulted, monitor Mg/BMP/BNP/I+O # Tn-I elevation - stable, likely due to CHF # CAD - ASA, metoprolol, statin # DM2, A1c 6.8 - correction-dose lispro # VTE ppx - LMWH In my clinical judgment, the patient requires continued hospitalization for the following reasons: IV diuresis Quality Stroke Does the patient have a stroke diagnosis?: No VTE Prior VTE?: No VTE Risk Level:: Medical - moderate - high VTE Device Contraindication: Treatment Not Indicated VTE Drug Contraindication: N/A - Med Ordered
[2021-11-28 15:42] LABS: Glucose, Whole Blood 132 mg/dL (60-115)
[2021-11-28 20:49] LABS: Glucose, Whole Blood 140 mg/dL (60-115)
[2021-11-28] MEDS: Docusate Sodium 100 MG CAPSULE PO (20:57)
[2021-11-28] MEDS: Atorvastatin Calcium 80 MG TABLET PO (20:57)
[2021-11-28] MEDS: Enoxaparin Sodium 40 MG/0.4 ML SYRINGE SUBCUT (21:00)
[2021-11-29] VITALS (9 sets, daily range): BP systolic 100–146; BP diastolic 60–89; PULSE 49–73; RESP 15–18; TEMP 36.3–37.2; O2SAT 96–98
[2021-11-29 06:55] LABS: B Type Natriuretic Peptide 166 pg/mL (<100)
[2021-11-29 07:00] LABS: Anion Gap 15 (12-20); Blood Urea Nitrogen 24 mg/dL (9-16); Calcium 10.4 mg/dL (8.4-10.2); Carbon Dioxide 25 mmol/L (22-29); Chloride 107 mmol/L (96-108); Estimated Glomerular Filt Rate 59; Glucose Random 114 mg/dL (60-115); Magnesium 1.9 mg/dL (1.6-2.6); Potassium 4.3 mmol/L (3.3-5.1); Sodium 143 mmol/L (135-145)
[2021-11-29 07:46] LABS: Glucose, Whole Blood 104 mg/dL (60-115)
[2021-11-29] MEDS: Loratadine 10 MG TABLET PO (09:25)
[2021-11-29] MEDS: Tolterodine Tartrate LA 2 MG CAP.ER.24H PO (09:25)
[2021-11-29] MEDS: Docusate Sodium 100 MG CAPSULE PO ×2 (09:25→21:00)
[2021-11-29] MEDS: Cholecalciferol (Vitamin D3) 25 MCG TABLET PO (09:25)
[2021-11-29] MEDS: Aspirin 81 MG TAB.CHEW PO (09:25)
[2021-11-29] MEDS: 0.9 % Sodium Chloride Flush 3 ML SYRINGE IVFLUSH ×2 (09:25→17:34)
--- NOTE | 2021-11-29 10:24 | PM.PNCARD ---
Subjective Subjective Date of Service: 11/29/21 Interval history: He states he feels okay. Denies any complaints at this time from cardiac. Review of Systems Review of Systems Yes all other systems are reviewed and are negative Constitutional: Reports as per HPI Eyes: Reports as per HPI Reports as per HPI Cardiovascular: Reports as per HPI, Denies acrocyanosis, Denies cool extremities, Denies chest pain, Denies leg edema, Denies lightheadedness, Denies palpitations and Reports dyspnea Respiratory: Reports as per HPI, Reports no additional respiratory complaints and Reports dyspnea Gastrointestinal: Reports as per HPI and Reports no additional gastrointestinal complaints Genitourinary: Reports no additional male genitourinary complaints and Reports as per HPI Musculoskeletal: Reports no additional musculoskeletal complaints and Reports as per HPI Skin/Breast: Reports system reviewed and no additional complaints, except as docu Reports system reviewed and no additional complaints, except as documented and Reports as per HPI Psychiatric: Reports no additional psychiatric complaints and Reports as per HPI Endocrine: Reports no additional endocrine complaints, Reports as per HPI and Denies palpitations Hematologic/Lymphatic: Reports no additional hematologic/lymphatic complaints and Reports as per HPI Allergic/Immunologic: Reports no additional allergic/immunologic complaints and Reports as per HPI Physical Exam Vital Signs: Last Vital Signs Temp 97.9 F 11/29/21 08:00 Pulse 58 11/29/21 08:00 Resp 15 11/29/21 08:00 BP 103/63 11/29/21 08:00 Pulse Ox 98 11/29/21 08:00 O2 Del Method 11/29/21 04:00 BMI result Body Mass Index 29.0 Const General: comfortable and no acute distress Orientation/consciousness: patient oriented x3 HEENT Other: Unremarkable Head: Yes normal to inspection Neck Neck: Yes normal visual inspection Chest Chest palpation & inspection: normal inspection of the chest Resp Other: Minimal crackles at base Cardio Palpation: normal PMI Heart sounds: S1 normal heart sound present, S2 normal heart sound present, no gallops, no murmurs and no rubs GI Palpation (GI): Soft to palpation Back/Spine/Pelvis Other: unremarkable Skin General skin exam: no rashes or lesions noted Neuro General: patient oriented x3 Extrem General: Yes normal to inspection Psych Mental Status: mental status grossly normal Objective Labs and Meds Result diagrams: 11/28/21 05:52 11/29/21 05:52 Lab results: Laboratory Results - last 24 hr 11/28/21 11/28/21 11/28/21 11:28 15:31 20:39 Sodium Potassium Chloride Carbon Dioxide Anion Gap BUN Creatinine Estim Creat Clear Calc Estimated GFR POC Glucose 125 H 132 H 140 H Random Glucose Calcium Magnesium B-Natriuretic Peptide 11/29/21 11/29/21 11/29/21 05:52 05:52 07:41 Sodium 143 Potassium 4.3 Chloride 107 Carbon Dioxide 25 Anion Gap 15 BUN 24 H D Creatinine 1.19 Estim Creat Clear Calc 48.0 Estimated GFR 59 POC Glucose 104 Random Glucose 114 Calcium 10.4 H Magnesium 1.9 B-Natriuretic Peptide 166 H Progress Note: A&P Assessment and plan (1) Acute diastolic (congestive) heart failure: Status: Acute (2) PVC (premature ventricular contraction): Status: Acute Plan Cardiac studies reviewed. Echocardiogram yesterday difficult to interpret due to frequent PVCs. Thought to have mild decreased LVEF. Last echocardiogram with LVEF 54%. Basal inferior akinesis. Mildly decreased at ventricular function. No significant valvular issues. Cardiac catheterization from June 2021 with nonobstructive disease and no more than mild disease. Chest x-ray with mild bibasilar atelectasis. No consolidation. Mild pulmonary vascular congestion. High sensitivity troponins are elevated. 70. Similar to June. Cardiac BNP slightly increased to 597. Normal creatinine. Repeat cardiac BNP has come down to 166. Possible diastolic heart failure, but there is not much of clinical volume overload. He has received IV diuretics and that can be stopped. Change to oral diuretics. Not clear if frequent PVCs are playing a role. We can try to go up on the beta-jose dosing. Other options would be amiodarone, if necessary. Discussed with Dr. Corral. Time Spent With Patient Time: Total time spent is greater than 50% in coordination of care (as documented) at patient's floor/unit and/or counseling patient: 35min. Progress Note: Quality Stroke Does the patient have a stroke diagnosis?: No Procedures Date of Service Date of Service: 11/29/21
[2021-11-29 11:34] LABS: Glucose, Whole Blood 122 mg/dL (60-115)
--- NOTE | 2021-11-29 12:30 | HO.PM.IMPN ---
Subjective Subjective Date of Service: 11/29/21 Interval History: dyspnea improved frequent PVCs no chest pain Review of Systems Review of Systems: Yes all other systems are reviewed and are negative Physical Exam Vital Signs: Vital Signs: Last Vital Signs Temp 97.8 F 11/29/21 11:50 Pulse 49 L 11/29/21 11:50 Resp 18 11/29/21 11:50 BP 146/64 H 11/29/21 11:50 Pulse Ox 96 11/29/21 11:50 O2 Del Method 11/29/21 11:50 BMI result Body Mass Index 29.0 Gen: in no acute distress HEENT: sclera anicteric, moist mucus membranes Neck: supple Lungs: bibasilar inspiratory crackles Heart: regular, bradycardic no murmurs Abd: soft, non-tender, non-distended Ext: no edema Skin: warm/well-perfused Neuro: alert and oriented x3, no focal findings Psych: appropriate affect Objective Data Active Medications Acetaminophen (Acetaminophen 325 Mg Tablet) 650 mg PO Q6H PRN PRN Reason: Pain, Mild (Pain Scale 1-3) Aspirin (Aspirin 81 Mg Tab.Chew) 81 mg PO DAILY [facility] Last Admin: 11/29/21 09:25 Dose: 81 mg Documented By: GARCIA Atorvastatin Calcium (Atorvastatin Calcium 80 Mg Tablet) 80 mg PO BEDTIME [facility] Last Admin: 11/28/21 20:57 Dose: 80 mg Documented By: JONH Dextrose (Dextrose 50 % 25 Gm/50 Ml Syringe) 25 gm IVPUSH Q15M PRN; Protocol PRN Reason: per Hypoglycemia Standing Ord. Docusate Sodium (Docusate Sodium 100 Mg Capsule) 100 mg PO DAILY PRN PRN Reason: Constipation Docusate Sodium (Docusate Sodium 100 Mg Capsule) 100 mg PO BID [facility] Last Admin: 11/29/21 09:25 Dose: 100 mg Documented By: GARCIA Enoxaparin Sodium (Enoxaparin Sodium 40 Mg/0.4 Ml Syringe) 40 mg SUBCUT Q24H [facility] Last Admin: 11/28/21 21:00 Dose: 40 mg Documented By: JONH Furosemide (Furosemide 40 Mg/4 Ml Vial) 40 mg IVPUSH DAILY [facility]; Protocol Last Admin: 11/29/21 09:36 Dose: Not Given Documented By: GARCIA Non-Admin Reason: Physician Held Med Glucose (Glucose Gel 15 Gm Gel..Gram.) 15 gm PO Q15M PRN; Protocol PRN Reason: per Hypoglycemia Standing Ord. Insulin Human Lispro (Insulin Lispro 100 Unit/Ml 3 Ml Vial) 0 unit SUBCUT QIDACHS [facility]; Protocol Last Admin: 11/29/21 12:19 Dose: Not Given Documented By: GARCIA Non-Admin Reason: No Insulin Coverage Loratadine (Loratadine 10 Mg Tablet) 10 mg PO DAILY [facility] Last Admin: 11/29/21 09:25 Dose: 10 mg Documented By: GARCIA Metoprolol Tartrate (Metoprolol Tartrate 25 Mg Tablet) 25 mg PO BID [facility]; Protocol Nitroglycerin (Nitroglycerin 0.4 Mg Tab.Subl) 0.4 mg SUBLINGUAL DAILY PRN PRN Reason: Chest Pain Ondansetron HCl (Ondansetron Hcl 4 Mg/2 Ml Vial) 4 mg IVPUSH Q8H PRN PRN Reason: Nausea and Vomiting Pharmacy Consult (Consult Rx Perform Med Rec) 1 each MISCELLANE ONCE PRN PRN Reason: Consult order Sodium Chloride (0.9 % Sodium Chloride Flush 3 Ml Syringe) 3 ml IVFLUSH QSHIFT [facility] Last Admin: 11/29/21 09:25 Dose: 3 ml Documented By: GARCIA Tolterodine Tartrate (Tolterodine Tartrate La 2 Mg Cap.Er.24h) 2 mg PO DAILY [facility] Last Admin: 11/29/21 09:25 Dose: 2 mg Documented By: GACRIA Vitamin D (Cholecalciferol (Vitamin D3) 25 Mcg Tablet) 25 mcg PO DAILY [facility] Last Admin: 11/29/21 09:25 Dose: 25 mcg Documented By: GARCIA Labs CBC & Chem 7: 11/28/21 05:52 11/29/21 05:52 Labs: Laboratory Results - last 24 hr 11/28/21 11/28/21 11/29/21 15:31 20:39 05:52 Anion Gap 15 Estim Creat Clear Calc 48.0 Estimated GFR 59 POC Glucose 132 H 140 H Random Glucose 114 Calcium 10.4 H Magnesium 1.9 B-Natriuretic Peptide 11/29/21 11/29/21 11/29/21 05:52 07:41 11:28 Anion Gap Estim Creat Clear Calc Estimated GFR POC Glucose 104 122 H Random Glucose Calcium Magnesium B-Natriuretic Peptide 166 H TTE 11/28/21 Conclusions: - Due to frequent PVCs, difficult to quantify LVEF.? Probably? ? mildly reduced.? Findings Left Ventricle Normal left ventricular cavity size.? There is moderately increased left ventricular wall thickness.? Due to frequent PVCs, difficult to quantify LVEF.? Probably mildly reduced. Wall Motion Rest Echo Findings The basal inferior segment is akinetic. Prior Study Comparison No significant change compared to prior study dated:? 07/02/2021. Microbiology Microbiology Results: Microbiology 11/27/21 18:06 Blood Culture - Preliminary Blood - Venous No growth after 24 hours. 11/27/21 17:56 Blood Culture - Preliminary Blood - Venous No growth after 24 hours. Assessment and Plan (1) Acute diastolic (congestive) heart failure: Status: Acute Plan hospital d#3 81yo M with CKD3, DM2, HTN, nonobstructive CAD [cardiac cath June 2021] admitted due to CHF exacerbation # HFpEF exacerbation - now euvolemic, change to PO furosemide # frequent PVCs - try increasing metoprolol # Tn-I elevation - stable, likely due to CHF # CAD - ASA, metoprolol, statin # DM2, A1c 6.8 - correction-dose lispro # VTE ppx - LMWH # dispo: PT eval In my clinical judgment, the patient requires continued hospitalization for the following reasons: cardiac monitoring Quality Stroke Does the patient have a stroke diagnosis?: No VTE Prior VTE?: No VTE Risk Level:: Medical - moderate - high VTE Device Contraindication: Treatment Not Indicated VTE Drug Contraindication: N/A - Med Ordered
[2021-11-29] MEDS: Metoprolol Tartrate 25 MG TABLET PO ×2 (13:16→21:00)
[2021-11-29 16:06] LABS: Glucose, Whole Blood 114 mg/dL (60-115)
[2021-11-29 20:20] LABS: Glucose, Whole Blood 148 mg/dL (60-115)
[2021-11-29] MEDS: Atorvastatin Calcium 80 MG TABLET PO (21:00)
[2021-11-30] MEDS: Enoxaparin Sodium 40 MG/0.4 ML SYRINGE SUBCUT ×2 (01:23→22:49)
[2021-11-30] MEDS: 0.9 % Sodium Chloride Flush 3 ML SYRINGE IVFLUSH ×4 (01:25→21:03)
[2021-11-30 07:29] LABS: Glucose, Whole Blood 126 mg/dL (60-115)
[2021-11-30 07:54] LABS: Anion Gap 15 (12-20); Blood Urea Nitrogen 27 mg/dL (9-16); Calcium 10.3 mg/dL (8.4-10.2); Carbon Dioxide 24 mmol/L (22-29); Chloride 107 mmol/L (96-108); Creatinine Clr Calc Pharmacy 50.5; Estimated Glomerular Filt Rate > 60; Glucose Random 115 mg/dL (60-115); Potassium 4.2 mmol/L (3.3-5.1); Sodium 142 mmol/L (135-145)
[2021-11-30 07:58] VITALS: BP 115/59; PULSE 70; RESP 18; TEMP 36.4; O2SAT 98
[2021-11-30] MEDS: Loratadine 10 MG TABLET PO (08:20)
[2021-11-30] MEDS: Cholecalciferol (Vitamin D3) 25 MCG TABLET PO (08:20)
[2021-11-30] MEDS: Furosemide 40 MG TABLET PO (08:20)
[2021-11-30] MEDS: Docusate Sodium 100 MG CAPSULE PO ×2 (08:21→21:02)
[2021-11-30] MEDS: Tolterodine Tartrate LA 2 MG CAP.ER.24H PO (08:21)
[2021-11-30] MEDS: Metoprolol Tartrate 25 MG TABLET PO ×2 (08:21→21:02)
[2021-11-30] MEDS: Aspirin 81 MG TAB.CHEW PO (08:21)
--- NOTE | 2021-11-30 11:49 | HO.PM.IMPN ---
Subjective Subjective Date of Service: 11/30/21 Interval History: dyspnea improved no chest pain no lightheadedness frequent PVCs Review of Systems Review of Systems: Yes all other systems are reviewed and are negative Physical Exam Vital Signs: Vital Signs: Last Vital Signs Temp 97.6 F 11/30/21 07:58 Pulse 70 11/30/21 07:58 Resp 18 11/30/21 07:58 BP 115/59 L 11/30/21 07:58 Pulse Ox 98 11/30/21 07:58 O2 Del Method 11/30/21 07:58 BMI result Body Mass Index 29.0 Gen: in no acute distress HEENT: sclera anicteric, moist mucus membranes Neck: supple Lungs: clear to auscultation bilaterally Heart: regular rate and rhythm, no murmurs Abd: soft, non-tender, non-distended Ext: no edema Skin: warm/well-perfused Neuro: alert and oriented x3, no focal findings Psych: appropriate affect Objective Data Active Medications Acetaminophen (Acetaminophen 325 Mg Tablet) 650 mg PO Q6H PRN PRN Reason: Pain, Mild (Pain Scale 1-3) Aspirin (Aspirin 81 Mg Tab.Chew) 81 mg PO DAILY [facility] Last Admin: 11/30/21 08:21 Dose: 81 mg Documented By: ASHLEY Atorvastatin Calcium (Atorvastatin Calcium 80 Mg Tablet) 80 mg PO BEDTIME [facility] Last Admin: 11/29/21 21:00 Dose: 80 mg Documented By: LAKHWINDER Dextrose (Dextrose 50 % 25 Gm/50 Ml Syringe) 25 gm IVPUSH Q15M PRN; Protocol PRN Reason: per Hypoglycemia Standing Ord. Docusate Sodium (Docusate Sodium 100 Mg Capsule) 100 mg PO DAILY PRN PRN Reason: Constipation Docusate Sodium (Docusate Sodium 100 Mg Capsule) 100 mg PO BID [facility] Last Admin: 11/30/21 08:21 Dose: 100 mg Documented By: ASHLEY Enoxaparin Sodium (Enoxaparin Sodium 40 Mg/0.4 Ml Syringe) 40 mg SUBCUT Q24H [facility] Last Admin: 11/30/21 01:23 Dose: 40 mg Documented By: AKOSUA Furosemide (Furosemide 40 Mg Tablet) 40 mg PO DAILY [facility]; Protocol Last Admin: 11/30/21 08:20 Dose: 40 mg Documented By: ASHLEY Glucose (Glucose Gel 15 Gm Gel..Gram.) 15 gm PO Q15M PRN; Protocol PRN Reason: per Hypoglycemia Standing Ord. Insulin Human Lispro (Insulin Lispro 100 Unit/Ml 3 Ml Vial) 0 unit SUBCUT QIDACHS [facility]; Protocol Last Admin: 11/30/21 07:33 Dose: Not Given Documented By: ASHLEY Non-Admin Reason: No Insulin Coverage Loratadine (Loratadine 10 Mg Tablet) 10 mg PO DAILY [facility] Last Admin: 11/30/21 08:20 Dose: 10 mg Documented By: ASHLEY Metoprolol Tartrate (Metoprolol Tartrate 25 Mg Tablet) 25 mg PO BID [facility]; Protocol Last Admin: 11/30/21 08:21 Dose: 25 mg Documented By: ASHLEY Nitroglycerin (Nitroglycerin 0.4 Mg Tab.Subl) 0.4 mg SUBLINGUAL DAILY PRN PRN Reason: Chest Pain Ondansetron HCl (Ondansetron Hcl 4 Mg/2 Ml Vial) 4 mg IVPUSH Q8H PRN PRN Reason: Nausea and Vomiting Pharmacy Consult (Consult Rx Perform Med Rec) 1 each MISCELLANE ONCE PRN PRN Reason: Consult order Sodium Chloride (0.9 % Sodium Chloride Flush 3 Ml Syringe) 3 ml IVFLUSH QSHIFT [facility] Last Admin: 11/30/21 01:25 Dose: 3 ml Documented By: AKOSUA Tolterodine Tartrate (Tolterodine Tartrate La 2 Mg Cap.Er.24h) 2 mg PO DAILY [facility] Last Admin: 11/30/21 08:21 Dose: 2 mg Documented By: ASHLEY Vitamin D (Cholecalciferol (Vitamin D3) 25 Mcg Tablet) 25 mcg PO DAILY [facility] Last Admin: 11/30/21 08:20 Dose: 25 mcg Documented By: ASHLEY Labs CBC & Chem 7: 11/28/21 05:52 11/30/21 05:55 Labs: Laboratory Results - last 24 hr 11/29/21 11/29/21 11/30/21 16:02 19:59 05:55 Anion Gap 15 Estim Creat Clear Calc 50.5 Estimated GFR > 60 POC Glucose 114 148 H Random Glucose 115 Calcium 10.3 H 11/30/21 07:14 Anion Gap Estim Creat Clear Calc Estimated GFR POC Glucose 126 H Random Glucose Calcium Microbiology Microbiology Results: Microbiology 11/27/21 18:06 Blood Culture - Preliminary Blood - Venous No growth after 48 hours. 11/27/21 17:56 Blood Culture - Preliminary Blood - Venous No growth after 48 hours. Assessment and Plan (1) Acute diastolic (congestive) heart failure: Status: Acute Plan hospital d#4 81yo M with CKD3, DM2, HTN, nonobstructive CAD [cardiac cath June 2021] admitted due to CHF exacerbation # HFpEF exacerbation - euvolemic, changed to PO furosemide yesterday # frequent PVCs - increased metoprolol # Tn-I elevation - stable, likely due to CHF, no angina or ischemic changes # CAD - ASA, metoprolol, statin # DM2, A1c 6.8 - correction-dose lispro # VTE ppx - LMWH # dispo: PT recommends STR, CM will search for bed In my clinical judgment, the patient requires continued hospitalization for the following reasons: safe placement Quality Stroke Does the patient have a stroke diagnosis?: No VTE Prior VTE?: No VTE Risk Level:: Medical - moderate - high VTE Device Contraindication: Treatment Not Indicated VTE Drug Contraindication: N/A - Med Ordered
[2021-11-30 12:00] VITALS: BP 128/74; PULSE 65; RESP 20; O2SAT 97
[2021-11-30 12:41] LABS: COVID-19 Test Negative (Negative); IDNOW Serial# 16C4AD1C
[2021-11-30 13:47] LABS: Glucose, Whole Blood 117 mg/dL (60-115)
[2021-11-30 16:00] VITALS: BP 132/86; PULSE 75; RESP 17; TEMP 37.1; O2SAT 98
--- NOTE | 2021-11-30 16:12 | P.DS_ITS ---
DS: Providers Provider Date of Service: 11/30/21 Date of admission: 11/27/21 22:25 Primary care physician: Ameena Gracia Consults: 11/27/21 22:24 Consult to Cardiology Routine Consulting Provider: Bryan Leblanc Reason for consultation: new onset CHF Has provider been notified: No DS: Diagnosis Discharge Diagnosis (1) Acute diastolic (congestive) heart failure: Status: Inactive (2) PVC (premature ventricular contraction): Status: Inactive DS: Summary Hospital Course Hospital Course: from admission H+P by hospitalist Juan José Rivera MD, 11/27/21: 81-year-old male with past medical history of CKD, diabetes, hypercalcemia, HTN, NSTEMI, stroke arthritis, presents the hospital with complaints of shortness of breath.? Patient reports that his symptoms started about a week ago, associated with orthopnea, PND, wet cough, with no sputum production.? He has no chest pain, no palpitations.? No previous similar episode.? Reports no fever or chills.? Reports that he sleeps on 4 pills at home.? Denies any abdominal pain nausea or vomiting, no diarrhea constipation, no urinary symptoms and no lower extremity edema. On arrival to the ED patient with dynamic least stable with no significant abnormal vitals satting 90s on room air Labs are significant for WBC count of 8.1, hemoglobin of 13.5, BNP of 597, troponin of 70 remained flat, Chest x-ray shows vascular congestion Patient started on Lasix and will be admitted for further management This 81yo M with CKD3, DM2, HTN, and nonobstructive CAD [cardiac cath June 2021] was admitted due to CHF exacerbation. Cardiology was consulted. TTE was difficult to interpret in He was diuresed with IV furosemide to euvolemia, then placed on PO furosemide. For suppression of frequent PVCs, metoprolol dose was increased. Tn-I elevation was attributed to CHF in the absence of angina or ischemic EKG changes. Due to impaired gait and balance, he was discharged to a SNF for short-term rehabilitation. He should follow up with Primary Care and Cardiology. He had very mild hypercalcemia and a workup was initiated; intact PTH and 25-OH vitamin D are pending at the time of transfer. Time Spent with Patient Time attestation: Total time spent providing and/or coordinating discharge services: Discharge coordination time: Greater than 30 minutes Quality: Safe Use of Opioids Does Pt have an Active Cancer Diagnosis on the Problem List?: No Quality: Stroke Does the patient have a stroke diagnosis?: No Physical Exam Vital Signs: Vital Signs: Last Vital Signs Temp 97.6 F 11/30/21 07:58 Pulse 65 11/30/21 12:00 Resp 20 11/30/21 12:00 BP 128/74 11/30/21 12:00 Pulse Ox 97 11/30/21 12:00 O2 Del Method 11/30/21 12:00 BMI result Body Mass Index 29.0 Gen: in no acute distress HEENT: sclera anicteric, moist mucus membranes Neck: supple Lungs: clear to auscultation bilaterally Heart: regular rate and rhythm, no murmurs Abd: soft, non-tender, non-distended Ext: no edema Skin: warm/well-perfused Neuro: alert and oriented x3, no focal findings Psych: appropriate affect DS: Data Data Completed and Pending Completed studies during hospitalization [Text1]: Laboratory Results WBC 8.4 X10*3/uL (4.8-10.8) 11/28/21 05:52 RBC 5.05 X10*6/uL (4.60-5.80) 11/28/21 05:52 Hgb 13.8 g/dl (14.0-18.0) L 11/28/21 05:52 Hct 42.9 % (42.0-52.0) 11/28/21 05:52 MCV 85.0 fL (80.0-98.0) 11/28/21 05:52 MCH 27.3 pg (27.0-33.0) 11/28/21 05:52 MCHC 32.2 g/dl (31.0-36.0) 11/28/21 05:52 RDW 17.6 % (11.0-16.0) H 11/28/21 05:52 Plt Count 202 X10*3/uL (160-400) 11/28/21 05:52 MPV 11.0 fL (9.4-12.4) 11/28/21 05:52 Immature Gran % (Auto) 0.2 % (0.0-0.4) 11/28/21 05:52 Neut % (Auto) 46.2 % (45-73) 11/28/21 05:52 Lymph % (Auto) 37.1 % (20-40) 11/28/21 05:52 [place] % (Auto) 9.6 % (2-11) 11/28/21 05:52 Eos % (Auto) 6.7 % (0-4) H 11/28/21 05:52 Baso % (Auto) 0.2 % (0-2) 11/28/21 05:52 Lymph # (Auto) 3.1 X10*3/uL (1.2-4.9) 11/28/21 05:52 [place] # (Auto) 0.8 X10*3/uL (0.1-1.2) 11/28/21 05:52 Eos # (Auto) 0.6 X10*3/uL (0.0-0.4) H 11/28/21 05:52 Baso # (Auto) 0.0 X10*3/uL (0.0-0.2) 11/28/21 05:52 Abs Immat Gran (auto) 0.02 X10*3/uL (0.00-0.03) 11/28/21 05:52 Absolute Neuts (auto) 3.9 x10*3/uL (2.0-8.3) 11/28/21 05:52 Absolute Nucleated RBC 0.000 X10*3/uL (0.0-0.012) 11/28/21 05:52 Nucleated RBC % (auto) 0.0 /100WBC (0.0-0.2) 11/28/21 05:52 Sodium 142 mmol/L (135-145) 11/30/21 05:55 Potassium 4.2 mmol/L (3.3-5.1) 11/30/21 05:55 Chloride 107 mmol/L (96-108) 11/30/21 05:55 Carbon Dioxide 24 mmol/L (22-29) 11/30/21 05:55 Anion Gap 15 (12-20) 11/30/21 05:55 BUN 27 mg/dL (9-16) H 11/30/21 05:55 Creatinine 1.13 mg/dL (0.5-1.4) 11/30/21 05:55 Estim Creat Clear Calc 50.5 11/30/21 05:55 Estimated GFR > 60 11/30/21 05:55 POC Glucose 117 mg/dL (60-115) H 11/30/21 11:57 Random Glucose 115 mg/dL (60-115) 11/30/21 05:55 Estimat Average Glucose 148 mg/dL 11/28/21 05:52 Hemoglobin A1c % 6.8 % 11/28/21 05:52 Lactic Acid 1.9 mmol/L (0.5-2.0) 11/27/21 17:57 Calcium 10.3 mg/dL (8.4-10.2) H 11/30/21 05:55 Magnesium 1.9 mg/dL (1.6-2.6) 11/29/21 05:52 Total Bilirubin 0.3 mg/dL (0.0-1.0) 11/27/21 17:57 Direct Bilirubin 0.2 mg/dL (0.0-0.5) 11/27/21 17:57 AST 20 U/L (5-37) 11/27/21 17:57 ALT 18 U/L (0-40) 11/27/21 17:57 Alkaline Phosphatase 108 U/L (39-117) D 11/27/21 17:57 Troponin I High Sens 70.3 ng/L (<3.5-35.0) H 11/27/21 21:22 B-Natriuretic Peptide 166 pg/mL (<100) H 11/29/21 05:52 Total Protein 7.4 g/dL (6.5-8.0) 11/27/21 17:57 Albumin 3.9 g/dL (3.5-5.0) 11/27/21 17:57 COVID-19 ([facility]) Negative (Negative) 11/30/21 12:05 COVID-19 Clin Com See Note 11/30/21 12:05 Influenza Type A ([facility]) Negative (Negative) 11/27/21 17:57 Influenza Type B ([facility]) Negative (Negative) 11/27/21 17:57 Influenza A & B Note See Note 11/27/21 17:57 Impressions Chest X-Ray 11/27/21 17:50 IMPRESSION: 1. Mild bibasilar subsegmental atelectasis. No airspace consolidation. 2. Mild pulmonary vascular congestion and trace fissural fluid. No overt pulmonary edema. Pending studies at discharge: iPTH, 25-OH vitamin D Discharge Plan Discharge Patient Disposition: Xfer SNF Discharge Diagnosis: diastolic HF exacerbation, PVCs Referrals: [facility] [Other] - 1 Week Ameena Gracia [Primary Care Provider] - 1 Week Bryan Leblanc MD [Physician] - 2 Weeks Discharge Medications: New furosemide 40 mg Tablet 40 mg PO DAILY Qty: 30 0RF Protocol: Hold for SBP< HOLD for SBP < : 90 metoprolol tartrate 25 mg Tablet 25 mg PO BID Qty: 60 0RF Protocol: Hold for SBP/HR < HOLD for SBP < : 90 HOLD for HR < : 60 Continued atorvastatin 80 mg tablet 1 tab PO BEDTIME acetaminophen [Tylenol] 325 mg Tablet 650 mg PO Q6H PRN (Reason: Pain) nitroglycerin [Nitrostat] 0.4 mg tablet, sublingual See Rx Instructions .ROUTE .COMPLEX PRN (Reason: Chest Pain) Rx Instructions: 1 tab (0.4 mg) sublingually every 5 minutes as needed tolterodine 2 mg capsule,extended release 24hr 1 cap PO DAILY cetirizine 10 mg tablet 1 tab PO DAILY tramadol 50 mg tablet 1 tab PO Q12H PRN (Reason: Pain) docusate sodium 100 mg capsule 1 cap PO BID aspirin 81 mg tablet,chewable 1 tab PO DAILY cholecalciferol (vitamin D3) [Vitamin D3] 25 mcg (1,000 unit) capsule 1 cap PO DAILY Discontinued metoprolol tartrate 25 mg tablet 12.5 mg PO BID Qty: 30 0RF Discharge Orders: Discharge Order (Routine); Ordered 12/01/21 Ordered By: Malcolm Adams Diet: Low salt diet Activity on Discharge: As tolerated Stand Alone Forms: Patient Portal Discharge page Care Plan Goals: cardiac health Health Concerns: diastolic HF exacerbation, PVCs Plan of Treatment: start furosemide 40 mg daily increase metoprolol tartrate to 25 mg twice daily Please follow up with your primary care doctor within 1 week. Please follow up with Cardiology in 2 weeks. Please return to the hospital if you experience recurrent or worsening symptoms, Assessment: See Discharge Summary Patient Instructions: Heart Failure (DC) Discharge Date/Time: 12/01/21 18:27
[2021-11-30 16:23] LABS: Glucose, Whole Blood 113 mg/dL (60-115)
[2021-11-30 19:38] VITALS: BP 167/74; PULSE 79; RESP 18; TEMP 37; O2SAT 98
[2021-11-30 20:14] LABS: Glucose, Whole Blood 139 mg/dL (60-115)
[2021-11-30] MEDS: Atorvastatin Calcium 80 MG TABLET PO (21:02)
[2021-11-30 23:27] VITALS: BP 123/70; PULSE 58; RESP 18; TEMP 36.4; O2SAT 96
[2021-12-01 03:38] VITALS: BP 132/76; PULSE 59; RESP 17; TEMP 36.4; O2SAT 95
[2021-12-01 07:40] LABS: Glucose, Whole Blood 119 mg/dL (60-115)
[2021-12-01 07:51] VITALS: BP 114/68; PULSE 62; RESP 16; TEMP 36.4; O2SAT 96
[2021-12-01] MEDS: Furosemide 40 MG TABLET PO (08:14)
[2021-12-01] MEDS: Cholecalciferol (Vitamin D3) 25 MCG TABLET PO (08:14)
[2021-12-01] MEDS: Aspirin 81 MG TAB.CHEW PO (08:15)
[2021-12-01] MEDS: 0.9 % Sodium Chloride Flush 3 ML SYRINGE IVFLUSH (08:15)
[2021-12-01] MEDS: Tolterodine Tartrate LA 2 MG CAP.ER.24H PO (08:15)
[2021-12-01] MEDS: Docusate Sodium 100 MG CAPSULE PO (08:15)
[2021-12-01] MEDS: Loratadine 10 MG TABLET PO (08:15)
[2021-12-01 09:54] VITALS: BP 114/68; PULSE 62; O2SAT 96
[2021-12-01 11:18] VITALS: BP 117/62; PULSE 86; RESP 17; TEMP 36.9; O2SAT 95
[2021-12-01 11:28] LABS: Glucose, Whole Blood 149 mg/dL (60-115)
--- NOTE | 2021-12-01 13:08 | MHC.CM.PN ---
pt to be dcd today at 5 to [facility] pt aware attempted to reach sister with n/a
[2021-12-01 15:22] LABS: Glucose, Whole Blood 125 mg/dL (60-115)
[2021-12-01 17:06] LABS: Calcium (PTHI) 10.6 mg/dL (8.6-10.3); PTHI 78 pg/mL (16-77)
[2021-12-04 16:56] LABS: Vitamin D 25-OH, D2 <4 ng/mL; Vitamin D 25-OH, D3 23 ng/mL; Vitamin D 25-OH, Total 23 ng/mL (30-100)
== END 2021-12-01 18:27 | disposition skilled nursing facility (03) | DRG 291 ==
LOC: HO.ED 22:19 → HO.EDOVER 22:32 → HO.IMC 11-28 07:23
PROVIDERS: Family Medicine; Nurse Practitioner Family; Admitting Provider Internal Medicine; Emergency Provider Emergency Medicine; Visit Provider Hospitalist
DX: I11.0 Hypertensive heart disease with heart failure (principal); I50.31 Acute diastolic (congestive) heart failure; E11.22 Type 2 diabetes mellitus with diabetic chronic kidney disease; N18.30 Chronic kidney disease, stage 3 unspecified; I49.3 Ventricular premature depolarization; I25.10 Atherosclerotic heart disease of native coronary artery without angina pectoris; M19.90 Unspecified osteoarthritis, unspecified site; Z20.822 Contact with and (suspected) exposure to COVID-19; I25.2 Old myocardial infarction; Z86.73 Personal history of transient ischemic attack (TIA), and cerebral infarction without residual deficits; Z87.891 Personal history of nicotine dependence; Z79.82 Long term (current) use of aspirin; Z79.899 Other long term (current) drug therapy
CPT/HCPCS: 36415; 71046; 80048; 80076; 82306; 82947; 83036; 83605; 83735; 83880; 83970; 84484; 85025; 87040; 87502; 87635; 93005; 93306; 96374; 97110; 97116; 97162; 99285; J1650; J1940; Q9957